=== PATIENT | female | born 1940 | race Caucasian/White ===

== ENCOUNTER 2023-01-30 10:06 | Outpatient (OUT) | payer MEDICARE, SELFPAY ==
--- NOTE | 2023-01-30 10:20 | MM_ITS ---
Patient: RAMEZ BRYANT Exam Date: 01/30/2023 : 1940 Gender:F Ordering : DR MELISSA MEIER M.D. Admission #: [id number] Family : SHEILA LOBO Order #: [id number] CLICK HERE TO VIEW EXAM RADIOLOGY REPORT PROCEDURE: MM TOMOSYNTHESIS DIAGNOSTIC BI COMPARISON: MG MAMM DIAGNOSTIC 3D REYNALDO CAD, 01/29/2022. MG MAMM DIAGNOSTIC 3D REYNALDO CAD, 02/03/2021. INDICATIONS: Z12.31 Calculator Name NCI Breast Cancer Risk Assessment Tool 5 Year Breast Cancer Risk n/a% Lifetime Breast Cancer Risk n/a% Personal Breast Cancer Yes, rt breast,2014 Personal Ovarian Cancer No Treatments Kbnswpmrknzv-motdcdpct-cygodeffpsjl, radiation Family Cancers Mother with kidney cancer at age ~50; Grandmother-maternal with unknown cancer at age ~90; Brother with prostate cancer at age 50; Son with melanoma cancer at age 52. LOCATION: [facility] BREAST COMPOSITION: Scattered areas fibroglandular density. FINDINGS: DIAGNOSTIC CATEGORY 2--BENIGN FINDING. NO CHANGE FROM COMPARISON. Scattered benign-appearing nodules are present. Scattered benign-appearing calcifications are present. RIGHT BREAST: No significant suspicious finding. Asymmetrically small. Architectural distortion lower inner quadrant deep to a linear scar marker likely postsurgical in nature and stable LEFT BREAST: No significant suspicious finding. RECOMMENDATIONS: ROUTINE MAMMOGRAM AND CLINICAL EVALUATION IN 12 MONTHS. PLEASE NOTE: A NORMAL MAMMOGRAM DOES NOT EXCLUDE THE POSSIBILITY OF BREAST CANCER. A CLINICALLY SUSPICIOUS PALPABLE LUMP SHOULD BE BIOPSIED. Dictated by: Christian Aguero MD on 01/30/2023 at 11:52 Approved by: Christian Aguero MD on 01/30/2023 at 11:53
== END 2023-01-30 10:07 | disposition home or self-care (01) ==
LOC: MAMMO 10:06
PROVIDERS: PCP Internal Medicine; Visit Provider Radiology Radiation Oncology
DX: Z85.3 Personal history of malignant neoplasm of breast (principal)
CPT/HCPCS: 77066; G0279

== ENCOUNTER 2024-02-03 09:44 | Outpatient (OUT) | payer MEDICARE, SELFPAY ==
--- NOTE | 2024-02-03 09:55 | MM_ITS ---
Patient Name: RAMEZ BRYANT MR#: [id number] : 1940 Exam Date: 02/03/2024 Ordering Doctor: DR MELISSA MEIER M.D. RADIOLOGY REPORT PROCEDURE: MM TOMOSYNTHESIS DIAGNOSTIC BI COMPARISON: MG MAMM DIAGNOSTIC 3D REYNALDO CAD, 01/29/2022. MM TOMOSYNTHESIS DIAGNOSTIC BI, 01/30/2023. INDICATIONS: Malignant Neoplasm Of Breast In Female Calculator Name NCI Breast Cancer Risk Assessment Tool 5 Year Breast Cancer Risk n/a% Lifetime Breast Cancer Risk n/a% Personal Breast Cancer Yes, rt breast,2013 Personal Ovarian Cancer No Treatments Dmbtxbzxtaxa-ubhajhmtu-zrokkndbcofh, radiation Family Cancers Mother with kidney cancer at age ~50; Grandmother-maternal with unknown cancer at age ~90; Brother with prostate cancer at age 50; Son with melanoma cancer at age 52. LOCATION: [facility] BREAST COMPOSITION: There are scattered areas of fibroglandular density. FINDINGS: DIAGNOSTIC CATEGORY 2--BENIGN FINDING. NO CHANGE FROM COMPARISON. Bilateral moderate linear geographically distributed calcifications, benign appearing. Vascular calcifications. No new areas of clustered suspicious calcification, architectural distortion or mass lesion RIGHT BREAST: No significant suspicious finding. Linear marker indicates a scar with some coarse subjacent calcifications likely dystrophic. LEFT BREAST: No significant suspicious finding. RECOMMENDATIONS: ROUTINE MAMMOGRAM AND CLINICAL EVALUATION IN 12 MONTHS. PLEASE NOTE: A NORMAL MAMMOGRAM DOES NOT EXCLUDE THE POSSIBILITY OF BREAST CANCER. A CLINICALLY SUSPICIOUS PALPABLE LUMP SHOULD BE BIOPSIED. Dictated by: Christian Aguero MD on 02/03/2024 at 10:39 Approved by: Christian Aguero MD on 02/03/2024 at 10:42
== END 2024-02-03 09:45 | disposition home or self-care (01) ==
LOC: MAMMO 09:44
PROVIDERS: PCP Internal Medicine; Visit Provider Radiology Radiation Oncology
DX: C50.919 Malignant neoplasm of unspecified site of unspecified female breast (principal); Z17.0 Estrogen receptor positive status [ER+]; Z80.51 Family history of malignant neoplasm of kidney; Z80.42 Family history of malignant neoplasm of prostate; Z80.8 Family history of malignant neoplasm of other organs or systems; Z85.3 Personal history of malignant neoplasm of breast
CPT/HCPCS: 77066; G0279

== ENCOUNTER 2024-02-04 11:41 | Outpatient (OUT) | payer MEDICARE, SELFPAY ==
--- NOTE | 2024-02-04 11:48 | MR_ITS ---
[facility] [place] [id number] Patient Name: RAMEZ BRYANT MRN: [id number] date: 1940 Sex: F Assigned Patient Location: LAB Current Patient Location: LAB Accession/Order Number: [id number] Exam Date: 02/04/2024 12:08 Report Date: 02/04/2024 15:00 At the request of: MELISSA MEIER Procedure: MR head/brain wo/w con EXAM: MR scan of brain with and without contrast. TECHNIQUE: Sagittal T1, axial FLAIR, JOHN T2, diffusion imaging without contrast and postcontrast sagittal, axial, and coronal T1-weighted images performed. CONTRAST: 15 mL Dotarem. COMPARISON: MR scan performed 04/04/2022. FINDINGS: Right posterior fossa extra-axial dural based enhancing mass abutting the transverse sinus measuring 16 x 16 x 11 mm in diameter. This is stable in appearance when compared to the prior study. Mild increased T2 signal in the white matter of both cerebral hemispheres without restricted diffusion. The ventricles, sulci and basilar cisterns are normal. The cerebral hemispheres, brainstem and cerebellar hemispheres are otherwise normal Good flow void is seen within the vertebrobasilar and carotid circulation as well as the sagittal sinus. The orbital apices and infratemporal fossa are normal. 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 Electronically authenticated by: Yassine GALAN Date: 02/04/2024 15:00
[2024-02-04 12:12] LABS: Estimated GFR (African America 58 (>=60 mL/min/1.73m^2); Estimated GFR (Non-African Ame 48 (>=60 mL/min/1.73m^2)
== END 2024-02-04 11:42 | disposition home or self-care (01) ==
LOC: LAB 11:41
PROVIDERS: PCP Internal Medicine; Visit Provider Radiology Radiation Oncology
DX: D32.0 Benign neoplasm of cerebral meninges (principal); D32.9 Benign neoplasm of meninges, unspecified
CPT/HCPCS: 36415; 70553; 82565; A9575

== ENCOUNTER 2025-01-12 11:23 | Outpatient (OUT) | payer MEDICARE, SELFPAY ==
--- OUTSIDE RECORDS SUMMARY | 2025-01-12 11:25 | XMS_ITS | Clinical Summary ---
Author Organization [facility] Address [id number] [address] [place] [address] Care Team Providers Care Industrial Gas Fitter Helper Name Role Phone Magdy Mazariegos Romario Fuentes Primary Care Provider Allergies Active Allergy Reactions Criticality Noted Date Comments Sulfamethoxazole-Trimethopr im Hives Low 05/01/2016 Oxaprozin Low 05/01/2016 Other reaction(s): SEVERE HEAD PAIN Other reaction(s): BAD PAIN IN HEAD Medications albuterol (PROVENTIL HFA;VENTOLIN HFA) 90 mcg/actuation inhaler Albuterol Sulfate 108 (90 Base) MCG/ACT AERS INHALE 2 PUFFS FOUR TIMES DAILY DIRECTED. Refills: 0 Active Active ANASTROZOLE ORAL Take 1 mg by mouth daily. Active aspirin 81 mg Take 81 mg by mouth daily. Active rosuvastatin (CRESTOR) 10 mg tablet Crestor 10 MG Oral Tablet TAKE 1 TABLET DAILY. Refills: 0 Active Active omega-3 fatty acids-vitamin E (FISH OIL) 1,000 mg capsule Active POLYETHYLENE GLYCOL 3350 (MIRALAX ORAL) Activ e budesonide-form oterol (SYMBICORT) 160-4.5 mcg/actuation inhaler Symbicort 160-4.5 MCG/ACT Inhalation Aerosol INHALE 2 PUFFS TWICE DAILY. RINSE MOUTH AFTER USE. Refills: 0 Active Active VITAMIN E, DL,TOCOPHERYL ACET, (VITAMIN E, DL, ACETATE, ORAL) Active ranitidine (ZANTAC) 150 mg tablet Take 150 mg by mouth 2 (two) times a day. 4 Active levothyroxine sodium (TIROSINT) 50 mcg capsule Take 50 mcg by mouth daily. Active ERGOCALCIFEROL, VITAMIN D2, (VITAMIN D2 ORAL) Take by mouth. Activ e fluticasone (FLONASE) 50 mcg/actuation nasal spray 7 Active naproxen sodium (ALEVE) 220 mg capsule Take 220 mg by mouth 2 (two) times a day with meals. Active DULoxetine (CYMBALTA) 60 mg capsule Take 60 mg by mouth daily. Active famotidine (PEPCID) 20 mg tablet Take 20 mg by mouth 2 (two) times a day. Active buPROPion XL (WELLBUTRIN XL) 150 mg 24 hr tablet 0 Active montelukast (SINGULAIR) 10 mg tablet Take 10 mg by mouth nightly. Active mirabegron (MYRBETRIQ) 50 mg tablet extended release 24 hr Take 1 tablet (50 mg total) by mouth daily. 90 tablet 3 0 Active oxybutynin XL (DITROPAN XL) 15 mg 24 hr tablet TAKE 1 TABLET BY MOUTH DAILY 90 tablet 3 2 Active Active Problems Problem Noted Date Diagnosed Date History of breast cancer in female 02/03/2018 Lumbar spondylosis 02/27/2017 Lumbosacral spondylosis without myelopathy 02/27 Overview (02/27/2017): Added automatically from request for surgery [id number] Cervical spondylosis without myelopathy 12/04/19 17 Malignant neoplasm of uterus 08/08/2016 Malignant neoplasm of female breast 08/08/2016 Urge incontinence of urine 05/01/2016 Overview (12/01/2019): Sling 2013 Redo sling with autologous fascia 2013 Rectocele repair 2014 Worsening urge incontinence despite myrbetriq use. Re-culture urine negative Urodynamics demonstrating normal bladder filling and emptying with no uninhibited contractures cysto May 15, 2016 negative Improved markedly with adding VESIcare 10 mg in conjunction with Myrbetriq 50 mg. 11/11/18: Some progression of symptoms. Plan to continue Myrbetriq 50 mg. Plan to increase to oxybutynin extended-release 15 mg 05/05/19: Progressive symptoms. Almost all at night. PVR 0. I told her that I think a lot of her symptoms are from poor sleep quality . She tried melatonin already. Plan tiral of ambien. 12/01/19: Continued urge incontinnence especially at night despite oxybutynin 15 mg and myrbetriq 50 mg. optoins discussed including intravesical botox. Discussed risk of retention. She was not interested. Urine with nitrate only. Will send for culture Family History Medical History Relation Name Comments Early Father Lazaro Newell Heart Attach age 27 Heart attack Father Lazaro Newell Cancer Maternal Grandfather Uterine cancer Maternal Grandmother Nikolas Escobarter Cancer Mother Heike Krause kidney and panc reatic Early Mother Heike Krause Cancer age 56 Kidney cancer Mother Heike Krause Uterine cancer Mother Heike Krause Kidney cancer Cancer Son 1 Nathaniel Herman Stroke Son 1 Nathaniel Herman Early Son 2 Guilherme Herman Cancer age 52 Relation Name Status Comments Father Lazaro Newell Maternal Grandfather Maternal Grandmother Nikolas Self Mother Heike Krause Son 1 Nathaniel Herman Son 2 Guilherme Herman Social History Tobacco Use Types Packs/Day Years Used Date Smoking Tobacco: Never Smokeless Tobacco: Never Alcohol Use Standard Drinks/Week Comments No 0 (1 standard drink = 0.6 oz pur e alcohol) Childcare Answer Date Recorded Childcare Unknown 10/08/2018 Employment Answer Date Recorded Employment Unknown 10/08/2018 Purpose - Life Answer Date Recorded Purpose and direction in life Unknown Comments No Sex and Gender Information Value Date Recorded Sex Assigned at Female 07/22/2021 10:06 AM EDT Legal Sex Female 11:27 AM EDT Gender Identity Female 07/22/2021 10:06 AM EDT Sexual Orientation Straight 07/22/2021 10 :06 AM EDT Last Filed Vital Signs Vital Sign Reading Time Taken Comments Blood Pressure 160/80 02/15/2020 10:28 AM EDT Pulse 93 12/05/2019 12:59 PM EDT Temperature 36.6 C (97.9 F) 12/05/2019 12:59 PM EDT Respiratory Rate 18 12/05/2019 12:59 PM EDT Oxygen Saturation 96% 12/05/2019 12:59 PM EDT Inhaled Oxygen Concentration - - Weight 86.3 kg (190 lb 3.2 oz) 02/15/2020 10:25 AM EDT Height 157.5 cm (5' 2 ) 02/15/2020 10:25 AM EDT Body Mass Index 34.79 02/15/2020 10:25 AM EDT Plan of Treatment Health Maintenance Due Date Last Done Comments Depression Screening 1952 Tobacco Screening 1952 DTaP,Tdap and Td Vaccines (1 - Tdap) 1958 Zoster (Shingles) Vaccine (1 of 2) 1958 Fall Risk Screening 01/26/2004 COVID-19 Vaccine (3 - Pfizer risk series) 07/07/2020 06/09/2020, 05/19/2020 Influenza Vaccine 12/28/2024 01/20/2020, , 12/28/2010 Medical Devices Implanted Type Area Recreation Coordinator Device Identifier Shelf Expiration Date Model / Serial / Lot Artificial Knees Description:bilateral Breast Marker Description:Right breast Insurance MEDICARE [facility] Care Teams Industrial Gas Fitter Helper Relationship Specialty Start Date End Date Romario Curran Jr., [address] [id number] PCP - General Internal Medicine 01/11/16
--- OUTSIDE RECORDS SUMMARY | 2025-01-12 11:25 | XMS_ITS | Encounter Summary ---
Author Organization [facility] Address [facility] [id number] [address] [place] [address] Care Team Providers Care Railcar Carpenter Name Role Phone Magdy Mazariegos DO, Charles L Primary Care Provider Encounter Details Date Type Department Care Team (Late st Contact Info) Description 12/22[facility]2019 [facility] [address] [place] [id number] Mayra Guillaume RMA Social History Tobacco Use Types Packs/Day Years Used Date Smoking Tobacco: Never Smokeless Tobacco: Never Alcohol Use Standard Drinks/Week Comments No 0 (1 standard drink = 0.6 oz pur e alcohol) Childcare Answer Date Recorded Childcare Unknown 10/08/2018 Employment Answer Date Recorded Employment Unknown 10/08/2018 Comments No Sex and Gender Information Value Date Recorded Sex Assigned at Female 07/22/2021 10:06 AM EDT Legal Sex Female 11:27 AM EDT Gender Identity Female 07/22/2021 10:06 AM EDT Sexual Orientation Straight 07/22/2021 10 :06 AM EDT COVID-19 Exposure Response Date Recorded In the last month, have you been in contact with someone who was confirmed or suspected to have Coronavirus / COVID-19? No / Unsure 12/05/2019 1:01 PM EDT documented as of this encounter Miscellaneous Notes * Telephone Encounter - MINERVA Chatterjee - 12/22/2019 12:53 PM EDT Can you please advise on the urine culture done on 12/16/2019. MINERVA Chatterjee 12/22/19 1255 * Telephone Encounter - NANNETTE Recinos - 12/22/2019 12:53 PM EDT Normally that organism does not cause problem unless pt is --pt is 79 yrs old so I would not treat unless truly feels she is symptomatic * Telephone Encounter - MINERVA Chatterjee - 12/22/2019 12:53 PM EDT Pt wanted me to leave a vm, so I did with the results. documented in this encounter Plan of Treatment Not on file documented as of this encounter Visit Diagnoses Not on filedocumented in this encounter Additional Health Concerns Assessment Noted Time A Body Mass Index follow-up plan has been documented for the patient 02/03/2018 11:08 AM EDT documented as of this encounter Care Teams Railcar Carpenter Relationship Specialty Start Date End Date Romario Curran Jr., [facility] [place] [address] PCP - General Internal Medicine 01/11/16 documented as of this encounter
--- OUTSIDE RECORDS SUMMARY | 2025-01-12 11:25 | XMS_ITS | Encounter Summary ---
Author Organization [facility] Address [facility] [id number] [address] [place] [address] Care Team Providers Care Inspector Name Role Phone Magdy Mazariegos DO, Charles L Primary Care Provider Encounter Details Date Type Department Care Team (Late st Contact Info) Description 12/18[facility]2019 [facility] [address] [place] [address] Adriana Garcia CMA Social History Tobacco Use Types Packs/Day Years [...] encounter Miscellaneous Notes * Telephone Encounter - Adriana Garcia CMA - 12/18/2019 8:04 AM EDT Pt's urine culture came back Strep B, no treatment correct? Adriana Garcia CMA 12/18/19 0804 * Telephone Encounter - Kurt Spivey MD - 12/18/2019 8:04 AM EDT Correct documented in this encounter Plan of Treatment Not on file documented as of this encounter Visit Diagnoses Not on filedocumented in this encounter Additional Health Concerns Assessment Noted Time A Body Mass Index follow-up plan has been documented for the patient 02/03/2018 11:08 AM EDT documented as of this encounter Care Teams Inspector Relationship Specialty Start Date End Date Romario Curran Jr., [address] [place] [address] PCP - General Internal Medicine 01/11/16 documented as of this encounter
--- OUTSIDE RECORDS SUMMARY | 2025-01-12 11:25 | XMS_ITS | Clinical Summary ---
Author Organization [facility] Address [address] [facility] [address], [address] [place] [address] Care Team Providers Care Manager Intel Name Role Phone Vance Bergeron MD Primary Care Provider [phone] Allergies No known active allergies Medications valsartan (DIOVAN) 160 MG tablet Take 160 mg by mouth daily. Active Rosuvastatin Calcium (CRESTOR PO) Take by mouth daily. Active sertraline (ZOLOFT) 100 MG tablet Take 100 mg by mouth daily. Active Albuterol Sulfate (PROVENTIL HFA IN) Inhale into the lungs as needed. Active amlodipine (NORVASC) 5 MG tablet Take 5 mg by mouth daily. Active nabumetone (RELAFEN) 500 MG tablet Take 1,000 mg by mouth nightly. Active ranitidine (ZANTAC) 150 MG tabletIndication s:Bronchial asthma Take 1 tablet by mouth 2 times daily. 180 tablet 3 01/31/2012 Active Active Problems Problem Noted Date Diagnosed Date Bronchial asthma 07/16/2011 Post-nasal drip 07/16/2011 Periodic limb movement sleep disorder 07/16/2011 Sleep apnea 07/16/2011 Immunizations Immunization Administration Dates Next Due Influenza Virus Vaccine 12/28/2010 Social History Tobacco Use Types Packs/Day Years Used Date Smoking Tobacco: Never Alcohol Use Standard Drinks/Week Comments No 0 (1 standard drink = 0.6 oz pur e alcohol) Comments No Sex and Gender Information Value Date Recorded Sex Assigned at Not on file Legal Sex Female 10:50 AM EST Gender Identity Not on file Sexual Orientation Not on file Last Filed Vital Signs Vital Sign Reading Time Taken Comments Blood Pressure 136/74 01/28/2012 9:23 AM EDT Pulse 75 01/28/2012 9:23 AM EDT Temperature 36.3 C (97.4 F) 01/28/2012 9:23 AM EDT Respiratory Rate 16 01/28/2012 9:23 AM EDT Oxygen Saturation 95% 01/28/2012 9:23 AM EDT Inhaled Oxygen Concentration - - Weight 104.3 kg (230 lb) 01/28/2012 9:23 AM EDT Height 160 cm (5' 3 ) 01/28/2012 9:23 AM EDT Body Mass Index 40.74 01/28/2012 9:23 AM EDT Plan of Treatment Not on file Care Teams Manager Intel Relationship Specialty Start Date End Date Vance Bergeron MD PCP - General 07/16/11
--- OUTSIDE RECORDS SUMMARY | 2025-01-12 11:25 | XMS_ITS | Clinical Summary ---
Author Organization [facility] Address [address] [place] [address] Care Team Providers Care Home Energy Auditor Name Role Phone Magdy Mazariegos DO, Charles [facility] Primary [facility] Provi patricia Allergies Active Allergy Reactions Criticality Noted Date Comments Sulfamethoxazole-Trime thoprim Rash,Hives Low 05/01/2016 red spots Oxaprozin Other: See Comments Low 09/05/2009 Other reaction(s): SEVERE HEAD PAIN Other reaction(s): BAD PAIN IN HEAD Medications mirabegron (MYRBETRIQ) 25 mg Tb24 Take 25 mg by mouth once daily. Active oxybutynin ER (DITROPAN XL) 15 mg 24 hr Extended Rel Tab 15 mg. 06/12/2016 Active levothyroxine 50 mcg cap Take 50 mcg by mouth daily before breakfast. Active famotidine (PEPCID) 20 mg tablet Take 20 mg by mouth twice daily. Active buPROPion SR (ZYBAN SR; WELLBUTRIN SR) 150 mg 12 hr tablet Take by mouth. 02/16/2022 Active losartan (COZAAR) 25 mg tablet 10/23/2022 Active montelukast (SINGULAIR) 10 mg tablet Take 10 mg by mouth daily at bedtime. 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 Immunizations Immunization Administration Dates Next Due influenza (HD-IIV4) vaccine, age 65+ yr, high dose, quadrivalent, PF (FLUZONE HIGH-DOSE) 01/20/2020 influenza (LAIV) vaccine, na geo, unspecified formulation 12/28/2010 influenza vaccine, unspecified formulation 01/27 pneumococcal polysaccharide (PPV23) vaccine, 23 valent (PNEUMOVAX 23) 01/20/2020 Social History Tobacco Use Types Packs/Day Years Used Date Smoking Tobacco: Never Smokeless Tobacco: Never Tobacco Cessation:Counseling Given: Not Answered Alcohol Use Standard Drinks/Week Comments Not Asked 0 (1 standard drink = 0.6 oz pur e alcohol) PHQ-2 Answer Date Recorded PHQ-2 score 0 02/12/2024 Area Deprivation Index Answer Date Marcos rded National Score (1-100), lower number is lower ri sk 65 02/06/2023 State Score (1-10), lower number is lower risk 5 02/06/2023 Data from: https://www.neighborhoodatlas.medicine.[facility]/. Last address used for calculation [address] 02/06/2023 Comments No Sex and Gender Information Value Date Recorded Sex Assigned at Female 12/18/2018 7:58 PM EDT Legal Sex Female 8:21 AM EST Gender Identity Female 12/18/2018 7:58 PM EDT Sexual Orientation Straight 12/18/2018 7: 58 PM EDT Last Filed Vital Signs Vital Sign Reading Time Taken Comments Blood Pressure 153/84 02/12/2024 8:47 AM EDT Pulse 104 02/12/2024 8:47 AM EDT Temperature 36.7 C (98.1 F) 02/12/2024 8:47 AM EDT Respiratory Rate 18 02/12/2024 8:47 AM EDT Oxygen Saturation 98% 02/12/2024 8:47 AM EDT Inhaled Oxygen Concentration - - Weight 75 kg (165 lb 5.5 oz) 02/12/2024 8:47 AM EDT Height 157.5 cm (5' 2.01 ) 07/30/2018 1:45 PM ED T Body Mass Index 30.23 07/30/2018 1:45 PM EDT Plan of Treatment Upcoming Encounters Date Type Department Care Team (Late st Contact Info) Description 02/11/2025 10:00 AM EDT Office Visit Radiation Oncology [address] [place] [address] [place] [address] Yassine Broderick MD [address] [place] [address] [place] [address] 1 yr follow up Health Maintenance Due Date Last Done Comments Anxiety Screening 1958 Depression Screening 1958 Bone Density Screening 01/26/2004 RSV Vaccine (1 - 1-dose 75+ series) 2014 Diabetes Screening 07/30/2021 07/30/2018, 10/02/2017 Shingrix Vaccine (2 of 2) 03/12/2024 01/16/2024 Advance Directive Discussion 04/29/2024 Medicare Advantage Annual We llness Visit 04/29/2024 Influenza Vaccine (#1) 2024 , 01/28/2020, 01/20/2020, Additional history exists DTaP,Tdap,Td Vaccine (2 - Td or Tdap) 01/15/2034 01/16/2024 Pneumococcal Vaccine: 50+ Completed 01/16/2024, Procedures Procedure Name Priority Date/Time Associated Diagnosis Comments BASIC METABOLIC PANEL Routine 07/30/2018 1:54 PM EDT Malignant neoplasm of breast in female, estrogen receptor positive, unspecified laterality, unspecified site of breast (HCC) from Last 3 Months or Most Recently Relevant to Health Maintenance Results * (ABNORMAL) BASIC METABOLIC PNL (07/30/2018 1:54 PM EDT) Glucose 102(H) 74 - 99 mg/dL 07/31/2018 6:54 AM EDT [facility] Comment: The [place] Diabetes [employer] (ADA) provides guidance for cutoff values for fasting glucose and random glucose. The ADA defines fasting as no caloric intake for at least 8 hours. Fasting plasma glucose results between 100 to 125 mg/dL indicate increased risk for diabetes (prediabetes). Fasting plasma glucose results greater than or equal to 126 mg/dL meet the criteria for diagnosis of diabetes. In the absence of unequivocal hyperglycemia, results should be confirmed by repeat testing. In a patient with classic symptoms of hyperglycemia or hyperglycemic crisis, random plasma glucose results greater than or equal to 200 mg/dL meet the criteria for diagnosis of diabetes. Reference: Standards of Medical Care in Diabetes 2016, [place] [employer]. Diabetes Care. 2016.39(Suppl 1). BUN 13 7 - 21 mg/dL 07/31/2018 6:54 AM EDT [facility] Creatinine 0.64 0.58 - 0.96 mg/dL 07/31/2018 6:54 AM EDT [facility] Sodium 142 136 - 144 mmol/L 07/31/2018 6:54 AM EDT [facility] Potassium 4.0 3.7 - 5.1 mmol/L 07/31/2018 6:54 AM EDT [facility] Chloride 107(H) 97 - 105 mmol/L 07/31/2018 6:54 AM EDT [facility] CO2 21(L) 22 - 30 mmol/L 07/31/2018 6:54 AM EDT [facility] Anion Gap 14 9 - 18 mmol/L 07/31/2018 6:54 AM EDT [facility] Calcium 9.5 8.5 - 10.2 mg/dL 07/31/2018 6:54 AM [facility] eGFR- >60 07/31/2018 6:54 AM T [facility] eGFR-All Other Races >60 . 07/31/2018 6:54 AM T [facility] Comment: eGFR (Estimated GFR) Units of measure: mL/min/1.73 meters squared eGFR is derived from the reexpressed MDRD Study equation using the following parameters: serum creatinine, age, gender and race. The creatinine assay has been calibrated to be traceable to IDMS. An eGFR <60 mL/min/1.73m2 for >3 months is consistent with chronic kidney disease. Refer to KDOQI guidelines for clinical interpretation. In patients with unstable renal function, e.g. those with acute kidney injury, the eGFR may not accurately reflect actual GFR. Blood specimen (specimen) 07/30/2018 1:54 PM EDT 07/30/2018 1:56 PM EDT us Kurt Cano DO LABORATORY Final Res ult [facility] [address] [place] [address] [facility] [address] [place] [address] from Last 3 Months or Most Recently Relevant to Health Maintenance Insurance [employer] (Work) [address] [place] [id number] [facility] [place] [address] Advance Directives Documents on File Type Date Recorded Patient Oracle Reports Developer Expl anation Advance Directive(s) 03/05/2014 2:12 PM Care Teams Home Energy Auditor Relationship Specialty Start Date End Date Romario Curran Jr., [address] [place] [address] [place] [id number] PCP - General Internal Medicine 02/02/14
--- NOTE | 2025-01-12 11:26 | MM_ITS ---
Patient Name: RAMEZ BRYANT MR#: [id number] : 1940 Exam Date: 01/12/2025 Ordering Doctor: DR MELISSA MEIER M.D. RADIOLOGY REPORT PROCEDURE: MM TOMOSYNTHESIS SCREENING BI COMPARISON: MM TOMOSYNTHESIS DIAGNOSTIC BI, 02/03/2024. MM TOMOSYNTHESIS DIAGNOSTIC BI, 01/30/2023. MG MAMM DIAGNOSTIC 3D REYNALDO CAD, 01/29/2022. MG MAMM RT DIAG W CAD, 08/13/2014. INDICATIONS: screening Calculator Name NCI Breast Cancer Risk Assessment Tool 5 Year Breast Cancer Risk n/a% Lifetime Breast Cancer Risk n/a% Personal Breast Cancer Yes, rt breast,2013 Personal Ovarian Cancer No Treatments Upljmqkvwghs-vjehpdbwb-papiyskpqebd, radiation Family Cancers Mother with kidney cancer at age ~50; Grandmother-maternal with unknown cancer at age ~90; Brother with prostate cancer at age 50; Son with melanoma cancer at age 52. LOCATION: [facility] BREAST COMPOSITION: There are scattered areas of fibroglandular density. FINDINGS: RIGHT BREAST: No significant suspicious finding. LEFT BREAST: No significant suspicious finding. DIAGNOSTIC CATEGORY 1--NEGATIVE. RECOMMENDATIONS: ROUTINE MAMMOGRAM AND CLINICAL EVALUATION IN 12 MONTHS. Dictated by: Jesse Hackett MD on 01/12/2025 at 14:52 Approved by: Jesse Hackett MD on 01/12/2025 at 15:15
--- OUTSIDE RECORDS SUMMARY | 2025-01-12 12:17 | XMS_ITS | CCD ---
Author Organization [facility] Care Team Providers Care Supervisor [place] Name Role Phone Romario Lobo Jr. Primary Care Provider ROMARIO LOBO JR Primary Care Physician Romario Lobo Jr. Primary Care Provider ROMARIO TA Referring Unavail able NILL, Inge Escobedo Attending Unavailable NILL, Inge Escobedo Attending Unavailable NILL, DR ALCAZAR Consulting Unavailable NILL, DR ALCAZAR Admitting Unavailable NILL, DR ALCAZAR Attending Unavailable VALONE, DR SOSA Primary Care Unavailable RICARDO, MICHAEL GREGORY Consulting Unava ilable GEMBUS, ANGELIA Consulting Unavailable ENGELER, DR MELISSA Mahajan Attending Unavailable VALONE, DR SOSA Primary Care Unavailable WEST, DR VIVIANA Arroyo Consulting Unavailable ENGELER, DR MELISSA Mahajan Admitting Unavailable ENGELER, DR MELISSA Mahajan Consulting Unavailable VALONE, DR SOSA Primary Care Unavailable ENGELER, DR MELISSA Mahajan Attending Unavailable ENGELER, DR MELISSA Mahajan Consulting Unavailable ENGELER, DR MELISSA Mahajan Admitting Unavailable ZIEBER, DR MERYL Escobedo Consulting Unavailable NILL, DR ALCAZAR Consulting Unavailable NILL, DR ALCAZAR Admitting Unavailable NILL, DR ALCAZAR Attending Unavailable VALONE, DR SOSA Primary Care Unavailable Magdy Mazariegos, , Romario Newton Primary Care Provi patricia Yassine ANSARI Referring Unavailable Yassine ANSARI Attending Unavailable ROMARIO LOBO JR Primary Care Unavail able Allergies Allergy Classification Reported Allergen(s) Allergy Type Date of Onset Reaction(s) Facility (10 sources) oxaprozin; Translations: [oxaprozin] Drug Allergy 0 Other: See Comments, Unknown (qualifier value) [facility] (10 sources) Sulfamethoxazole / Trimethoprim; Translations: [sulfamethoxazole-tr imethoprim] Drug Allergy 7 Rash, Hives, Urticaria (disorder), Eruption of skin (disorder) [facility] (1 source) oxaprozin Drug Allergy [facility] (1 source) Sulfamethoxazole / Trimethoprim Drug Allergy [facility] Medications Current Medications Medication Drug Class(es) Dates Sig (Normalized) Sig (Original) 12 hr buPROPion hydrochloride 150 mg extended release oral tablet (4 sources) Aminoketone Start: 02-16-2022 take 1 tablet by mouth every twelve hours buPROPion SR (ZYBAN SR; WELLBUTRIN SR) 150 mg 12 hr tablet Take by mouth. 02/16/2022 Active Start: 02-16-2022 take 1 tablet by grace th once daily buPROPion 150 mg ER Tab 150 mg = 1 tab(s), Oral, Daily, Refills(s) 0 Start Date: 02/16/22 Status: Ordered Comment on above: Take by mouth. famotidine 20 mg oral tablet (7 sources) Histamine-2 Receptor Antagonist Start: 02-17-20 take 1 tablet by mouth twice daily famotidine 20 mg Tab 20 mg = 1 tab(s), Oral, BID, Refills(s) 0 Start Date: 02/16/22 Status: Ordered Comment on above: Take 20 mg by mouth twice daily. iv contrast (will be provided with radiology test) (2 sources) Start: 02-07-20 End: 02-08-20 inject 1 dose intravenously once iv contrast (will be provided with radiology test) MRI Brain Inject, intravenously, once for 1 dose.No IV access, insert saline lock prior to beginning of sedation, infusion, injection of imaging exam.Discontinue saline lock post exam. If Pt. has a central line or IVAD, may access for administration according to line specific nursing protocol.Once exam is complete flush line and de-access according to line specific nursing protocol in the MR contrast administration guidelines link 1 Each 0 02/06/2023 02/07/2023 Active Start: 02-07-2022 End: 02-08-2022 inject 1 dose intravenously once iv contrast (will be provided with radiology test) MRI Brain Inject, intravenously, once for 1 dose.No IV access, insert saline lock prior to beginning of sedation, infusion, injection of imaging exam.Discontinue saline lock post exam. If Pt. has a central line or IVAD, may access for administration according to line specific nursing protocol.Once exam is complete flush line and de-access according to line specific nursing protocol in the MR contrast administration guidelines link 1 Each 0 02/07/2022 02/08/2022 Active Comment on above: MRI Brain Inject, in travenously, once for 1 dose.No IV access, insert saline lock prior to beginning of sedation, infusion, injection of imaging exam.Discontinue saline lock post exam. If Pt. has a central line or IVAD, may access for administration according to line specific nursing protocol.Once exam is complete flush line and de-access according to line specific nursing protocol in the MR contrast administration guidelines link levothyroxine sodium 0.05 mg oral tablet (8 sources) l-Thyroxine Start: 022 take 1 tablet by mouth once daily levothyroxine 50 mcg (0.05 mg) Tab 50 mcg = 1 tab(s), Oral, Daily, Refills(s) 0 Start Date: 02/16/22 Status: Ordered take 1 capsule by [facility] once daily before breakfast levothyroxine 50 mcg cap Take 50 mcg by mouth daily before breakfast. Active Comment on above: Take 50 mcg by mouth daily before breakfast. losartan potassium 25 mg oral tablet (3 sources) Angiotensin 2 Receptor Mickey Start: 3 losartan (COZAAR) 25 mg tablet 10/23/2022 Active metFORMIN hydrochloride 500 mg oral tablet (2 sources) Biguanide Start: 1 End: 2 take 1 tablet by mouth once daily metFORMIN (GLUCOPHAGE) 500 mg tablet Take 500 mg by mouth once daily. 0 12/23/2020 02/07/2022 Discontinued (Course of therapy completed) Comment on above: Take 500 mg by mouth once daily. 24 hr mirabegron 50 mg extended release oral tablet (8 sources) beta3-Adrenergic Agonist Start: 2 take 1 tablet by mouth once daily Myrbetriq 50 mg oral tablet, extended release 50 mg = 1 tab(s), Oral, Daily, Refills(s) 0 Start Date: 02/16/22 Status: Ordered take 25 mg by mouth once daily m irabegron (MYRBETRIQ) 25 mg Tb24 Take 25 mg by mouth once daily. Active Comment on above: Take 25 mg by mouth once daily. montelukast 10 mg oral tablet (3 sources) Leukotriene Receptor Antagonist take 1 tablet by mouth once daily at bedtime montelukast (SINGULAIR) 10 mg tablet Take 10 mg by mouth daily at bedtime. Active Comment on above: Take 10 mg by mouth daily at bedtime. 24 hr oxybutynin chloride 15 mg extended release oral tablet (8 sources) Cholinergic Muscarinic Antagonist Start: 2 take 1 tablet by mouth once daily oxybutynin 15 mg ER Tab 15 mg = 1 tab(s), Oral, Daily, Refills(s) 0 Start Date: 02/16/22 Status: Ordered Start: 06-12-2016 oxybutynin ER (DITROPAN XL) 15 mg 24 hr Extended Rel Tab 15 mg. 06/12/2016 Active Comment on above: 15 mg. Miralax (1 source) Osmotic Laxative Start: 2 take 17 g by mouth once daily MiraLax 17 gm, Oral, Daily, Refill(s) 0 Start Date: 02/16/22 Status: Ordered triamcinolone acetonide 5 mg/ml topical cream (1 source) Corticosteroid Start: 2 triamcinolone Top 0.5% Crm 1 martine, Topical, BID, Refill(s) 0 Start Date: 02/16/22 Status: Ordered Problems Active Problems Problem Classification Problem Date Documented Da te Episodic/Chronic Asthma (1 source) Asthma 02-16-2022 Chronic Cancer of breast (19 sources) Malignant neoplasm of female breast; Translations: [Malignant neoplasm of unspecified site of unspecified female breast] Onset: 4 08-29-2017 Chronic Cancer of breast (12 sources) History of malignant neoplasm of breast; Translations: [Personal history of malignant neoplasm of breast] Onset: 5 08-30-2014 Episodic Cancer of uterus (1 source) History of malignant neoplasm of uterine body 02-16-2022 Episodic Chronic obstructive pulmonary disease and bronchiectasis (2 sources) Chronic obstructive lung disease; Translations: [Chronic obstructive pulmonary disease, unspecified] Onset: 2 02-16-2022 Chronic Disorders of lipid metabolism (2 sources) Hyperlipidemia; Translations: [Hyperlipidemia, unspecified] Onset: 2 02-16-2022 Chronic Diverticulosis and diverticulitis (2 sources) Diverticular disease; Translations: [Diverticulosis of large intestine without perforation or abscess without bleeding] Onset: 2 02-16-2022 Chronic Esophageal disorders (2 sources) Gastroesophageal reflux disease; Translations: [Gastro-esophageal reflux disease without esophagitis] Onset: 2 02-16-2022 Chronic Essential hypertension (2 sources) Hypertensive disorder; Translations: [Essential (primary) hypertension] Onset: 2 02-16-2022 Chronic Mood disorders (1 source) Depressive disorder 02-16-2022 Chronic Other aftercare (1 source) Other press tender long goods (current) drug therapy; Translations: [OTH PUPPY SITTER CURRENT DRUG THERAPY] Onset: 2 Episodic Other and unspecified benign neoplasm (8 sources) Benign neoplasm of cerebral meninges; Translations: [Benign neoplasm of cerebral meninges] Onset: 0 06-30-2009 Chronic Other and unspecified benign neoplasm (3 sources) Benign neoplasm of meninges; Translations: [Benign neoplasm of meninges, unspecified] Chronic Other and unspecified benign neoplasm (1 source) Benign neoplasm of meninges, unspecified; Translations: [BENIGN NEOPLASM OF MENINGES UNS] Onset: 2 Chronic Other gastrointestinal disorders (1 source) Abnormal feces; Translations: [Other fecal abnormalities] Onset: 2 Episodic Other gastrointestinal disorders (1 source) Chronic constipation 02-16-2022 Episodic Other gastrointestinal disorders (4 sources) Other fecal abnormalities; Translations: [OTHER FECAL ABNORMALITIES] Onset: 2 Episodic Other nutritional; endocrine; and metabolic disorders (1 source) Body mass index 30+ - obesity 02-28-2022 Chronic Other screening for suspected conditions (not mental disorders or infectious disease) (1 source) Stool DNA-based colorectal cancer screening positive 02-16-2022 Episodic Phlebitis; thrombophlebitis and thromboembolism (1 source) H/O: Deep vein thrombosis 02-16-2022 Episodic Residual codes; unclassified (1 source) Estrogen receptor positive status [ER+]; Translations: [ESTROGEN RECEPTOR POSITIVE STATUS] Onset: 2 Episodic Thyroid disorders (1 source) Hypothyroidism, unspecified; Translations: [HYPOTHYROIDISM UNSPECIFIED] Onset: 2 Chronic Unclassified (1 source) CONTACT W/AND (SUSP) EXPOS COVID-19; Translations: [CONTACT W/AND (SUSP) EXPOS COVID-19] Onset: 2 Past or Other Problems Problem Classification Problem Date Documented Da te Episodic/Chronic Other bone disease and musculoskeletal deformities (8 sources) Osteopenia; Translations: [Other specified disorders of bone density and structure, unspecified site] Onset: 03-29-2016 03-29-2016 Episodic Results Test Name Value Interpretation Reference Range Facil ity CNOVon 02-12-2024 CNOV Office Visit (RADTSA) RAMEZ HERMAN ([id number]) 1940 F Date Time Provider Department 02/12/24 9:00 AM Yassine ANSARI During your visit today, we recorded the following information about you: Temperature Pulse Respiration Blood pressure 98.1 degrees 104/minute 18/minute 153/84 Weight 75 kg Yassine Ansari MD 02/12/2024 9:07 AM Signed Radiation Oncology - Follow Up Note PATIENT NAME: Ramez Herman PATIENT Treatment Technique: conformal Imaging: portal imaging Date Start: 03/29/2014 Date Complete: 05/11/2014 Treatment Area Number [employer] Number of Fractions (Elapsed Days) Dose Right Breast 5 6/18 MV 25(36) 5000cGy Right Breast Boost 1 16 MEV 5(6) 1000cGy Total 30(43) 6000cGy DIAGNOSIS: 1. Breast cancer, right, [id number] status post right breast radiation completed in 2014. 2. Right cerebellar convexity meningioma. 3. Endometrial cancer with prior hysterectomy and INTERVAL HISTORY: Ramez Herman presents for follow no new problems or concerns. She states she has been doing well. Denies any logic issues, denies headache or vision change. Denies changes on self breast exam. No upper extremity lymphedema. Denies cough chest pain or shortness of breath. She is staying active. . Mammography: 02/03/24: bilateral mammography. BIRADS2 No suspicious findings or changes. Interval 12 month mammogram recommended. MRI Brain 02/04/24: Stable, no progression. No other significant findings. ALLERGIES: ALLERGIES Allergen Reactions Bactrim [Sulfametho* Rash, Hives red spots Daypro [Oxaprozin] Other: See Comments Other reaction(s): SEVERE HEAD PAIN Other reaction(s): BAD PAIN IN HEAD MEDICATIONS: buPROPion SR (ZYBAN SR; WELLBUTRIN SR) 150 mg 12 hr tablet Take by mouth. losartan (COZAAR) 25 mg tablet montelukast (SINGULAIR) 10 mg tablet Take 10 mg by mouth daily at bedtime. famotidine (PEPCID) 20 mg tablet Take 20 mg by mouth twice daily. levothyroxine 50 mcg cap Take 50 mcg by mouth daily before breakfast. oxybutynin ER (DITROPAN XL) 15 mg 24 hr Extended Rel Tab 15 mg. mirabegron (MYRBETRIQ) 25 mg Tb24 Take 25 mg by mouth once daily. PHYSICAL EXAM: VS: BP 153/84 Pulse 104 Temp 36.7 ?C (98.1 ?F) Resp 18 Wt 75 kg (165 lb 5.5 oz) SpO2 98% BMI 30.23 kg/m? KPS: 100 PHYSICAL EXAM: General Appearance: Well appearing, alert, in no acute distress, well-hydrated, well nourished.. Skin: Skin color, texture, turgor normal, no suspicious rashes or lesions. Lungs: Lungs clear to auscultation. No wheezing, rhonchi, rales.. Abdomen: Normal abdominal exam, Abdomen soft, non-tender. Bowel sounds normal. No masses, organomegaly. Neurologic: Nonfocal alert and oriented ?3 cranial nerves II through XII intact. Gait and station normal. So how long can you stated that her larynx today feel like there is a documentary I think that some of the morning but I did not know if he had stuff going on the abdomen -9 is perfect Breast: bilateral breasts are symmetric, minimal posttreatment changes on the right. No suspicious or dominant nodularity. The sensitive examination was discussed with the Patient or Patient's Authorized Grain Inspector. As applicable, any other physician, advance practice provider, medical student, or other health professional student that will be observing or involved in the sensitive examination for educational or training purposes was discussed with the Patient or Authorized Grain Inspector. The Patient or Authorized Grain Inspector has agreed to proceed with the sensitive examination. (Sensitive examination includes inspection and/or palpation of the breasts, pelvis, prostate and anorectal regions, renal dietitian present) ASSESSMENT/PLAN: 1. Breast cancer, right, [id number] Clinically doing well. No late radiation problems or evidence of recurrence. Plan return in one year with mammography 2. Right cerebellar convexity meningioma, MRI documents continued stability. Patient is due for every other year MRI brain. This will be due next fall will have this done prior to the visit. 3. Endometrial cancer. No evidence of clinical recurrence. Signed by: Yassine Ansari MD Cc:Dr. Lobo Portions of the above note extracted and edited from previous visit as well as active information included in the EMR. Referring Provider: Yassine ANSARI [[id number]] Allergies As of Date: 02/12/2024 Noted Allergy Reaction BACTRIM (SULFAMETHOXAZOLE-TR IMETH*05/01/2016 2 - Rash 4 - Hives Comments: red spots DAYPRO (OXAPROZIN) 09/05/2009 14 - Other: See Comments Comments: Other reaction(s): SEVERE HEAD PAIN Other reaction(s): BAD PAIN IN HEAD Date Reviewed: 02/12/2024 Reviewed by: Deysi Damon, RN - Fully Assessed Reason for Visit: Breast Cancer [519] Primary Visit Diagnosis:History of breast cancer [Z85.3] Order(s):KATHERINE DIAGNOSTIC BILATE (more content not included)... Normal [facility] [place] [facility] RAME[facility] HER[facility] ([id number]) 1940 F Date Time Provider Department 01/29/24 Yassine ANSARI During your visit today, we recorded the following information about you: Jessica Harris 01/29/2024 1:18 PM Signed Ramez is scheduled for her MRI on February 03 at 12:30pm At the [facility]. ANG/JOSE can we please fax over a creatine order for her per their request? Thank you Ron Montenegro LPN 01/29/2024 2:04 PM Signed Please sign pended creatinine order for upcoming MRI. Fax order to [facility]. VETO Elaine Ariana, LPN 01/29/2024 2:04 PM Signed Addended by: RON MONTENEGRO on: 01/29/2024 02:04 PM Modules accepted: Orders Yassine Ansari MD 01/29/2024 4:01 PM Signed Addended by: Yassine ANSARI on: 01/29/2024 04:01 PM Modules accepted: Orders Allergies As of Date: 01/29/2024 Noted Allergy Reaction BACTRIM (SULFAMETHOXAZOLE-TR IMETH*05/01/2016 2 - Rash 4 - Hives Comments: red spots DAYPRO (OXAPROZIN) 09/05/2009 14 - Other: See Comments Comments: Other reaction(s): SEVERE HEAD PAIN Other reaction(s): BAD PAIN IN HEAD Date Reviewed: 02/06/2023 Reviewed by: Ron Montenegro LPN - Fully Assessed Primary Visit Diagnosis: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 - losartan (COZAAR) 25 mg tablet - montelukast (SINGULAIR) 10 mg tablet Take 10 mg by mouth daily at bedtime. - famotidine (PEPCID) 20 mg tablet Take 20 mg by mouth twice daily. - levothyroxine 50 mcg cap Take 50 mcg by mouth daily before breakfast. - oxybutynin ER (DITROPAN XL) 15 mg 24 hr Extended Rel Tab 15 mg. - mirabegron (MYRBETRIQ) 25 mg Tb24 Take 25 mg by mouth once daily. Meds Comments as of 01/10/2009: Pt is allergic to an unknown BP med, will bring in the name of it at next appt. Joseline Pimentel LPN Problem List As Of Date 01/29/2024 Noted Resolved Benign Neoplasm of Cerebral Meninges [D32.0] 06/30/2009 Malignant neoplasm of female breast (HCC) [C50.*03/09/2014 History of breast cancer [Z85.3] 08/30/2014 Osteopenia [M85.80] 03/29/2016 Encounter Status:Closed by JESSICA HARRIS on 01/29/24 Normal [facility] CREATININEon 04-04-2022 Creatinine [Mass/Vol] 0.86 mg/dL Normal 0.55-1.02 [facility] Comment on above: Performed By: #### C KAPIL #### [facility] [address] [place] [address] Dr. Clark Mello EGFR-AF URUGUAYAN >60 Normal >=60 [facility] Comment on above: Performed By: #### C KAPIL #### [facility] [address] [place] [address] Dr. Clark Mello EGFR-NON AF URUGUAYAN >60 Normal >=60 [facility] Comment on above: Performed By: #### C KAPIL #### [facility] [address] [place] [address] Dr. Clark Mello MRI BRAIN WO W CONon 022 MRI BRAIN WO W CON EXAMINATION: MRI BRAIN WO W CON HISTORY: Benign neoplasm of meninges ; history of breast cancer COMPARISON: MRI brain 02/01/2020 TECHNIQUE: A variety of imaging planes and parameters were utilized for visualization of suspected pathology. Images were performed without and with a Dotarem contrast. FINDINGS: CEREBRUM: Mild atrophy and chronic small vessel ischemic changes. No edema, hemorrhage, mass, acute infarction, or inappropriate atrophy. CEREBELLUM: Extra-axial dural based enhancing mass protruding into posterior margin of right cerebellum, with mass 1.8 x 1.3 x 1.0 cm. No edema, hemorrhage, mass, acute infarction, or inappropriate atrophy. BRAINSTEM: No edema, hemorrhage, mass, acute infarction, or inappropriate atrophy. CSF SPACES: Ventricles, cisterns, and sulci are appropriate for age. No hydrocephalus, subarachnoid hemorrhage, or mass. SKULL: No mass or other significant visible lesion. SINUSES: Limited views demonstrate no significant mucosal thickening or fluid. ORBITS: Limited views are unremarkable. OTHER: No abnormal meningeal or parenchymal enhancement. IMPRESSION: 1. Minimal increase in size of an otherwise benign-appearing meningioma posterior to the right cerebellum. 2. Mild age consistent atrophy and chronic small vessel ischemic changes. 3. No findings to suggest metastatic disease. Electronically authenticated by: MERYL WILL Date: 2022-04-04 12:58 Normal [facility] Outside Colonoscopyon 2021 Outside Colonoscopy [id number] #1.00CD:127 Normal [facility] Lab Reportson 03-26-2022 Lab Reports [id number] #1.00CD:127 Normal [facility] Covid-19 PCR ([facility])on 02-28 SARS-CoV-2 (COVID-19) RNA LEONID+probe Ql (Unsp spec) Not detected Normal NOT DETECTED [facility] Comment on above: Result Comment: When diagnostic testing is negative, the possibility of a false negative should be considered in the context of a patient's recent exposures and the presence of clinical signs and symptoms consistent with SARS-CoV-2. This test is not yet approved or cleared by the [place] FDA. When there are no FDA-approved or cleared tests available, and other criteria are met, FDA can make tests available under an emergency access mechanism called an Emergency Use Authorization (EUA). The EUA for this test is supported by the [place] of Health and Human Service's declaration that circumstances exist to justify the emergency use of in vitro diagnostics for the detection and/or diagnosis of the virus that causes COVID-19. This EUA will remain in effect for the duration of the COVID-19 declaration justifying emergency of IVDs, unless it is terminated or revoked by the FDA (after which the test may no longer be used). Performed By: #### C VDTB #### [facility] [address] [place] [address] Dr. Clark Mello Consent for Procedure/Surger yon 03-01-2022 Consent for Procedure/Surgery [id number] #1.00CD:127 Normal [facility] Ambulatory Visit Summaryon 1 04-30-2021 Ambulatory Visit Summary RAMEZ HERMAN :1940 Visit Date:02/28/2022 Ambulatory Visit Instructions Your Care Team Attending Physician - WILL MOURA, Inge Escobedo Primary Care Physician - ROMARIO LOBO JR, DO Referring Physician - ROMARIO LOBO JR, DO This Is Your Medications List Contact prescribing physician if questions or concerns buPROPion (buPROPion 150 mg ER Tab) famotidine (famotidine 20 mg Tab) levothyroxine (levothyroxine 50 mcg (0.05 mg) Tab) mirabegron (Myrbetriq 50 mg oral tablet, extended release) oxybutynin (oxybutynin 15 mg ER Tab) polyethylene glycol 3350 (MiraLax) triamcinolone topical (triamcinolone Top 0.5% Crm) Procedures Performed Colonoscopy (04/11/2018), Colonoscopy (2011), Arthroplasty of right knee, History of arthroplasty of left knee, Lumpectomy of right breast, Repair of rectocele, Suspension of bladder, NICOLA - Total abdominal hysterectomy. Discharge Vitals Heart Rate (Peripheral) 76 Respiratory Rate 16 Blood Pressure 156/96 Height 160 cm Height 63 in Weight 82.7 kg Weight 181.94 lb BMI 32.3 Medications What How Much When Instructions Unchanged buPROPion (buPROPion 150 mg ER Tab) 1 Tablets By Mouth Every day Contact prescribing physician if questions or concerns Unchanged famotidine (famotidine 20 mg Tab) 1 Tablets By Mouth 2 times a day Contact prescribing physician if questions or concerns Unchanged levothyroxine (levothyroxine 50 mcg (0.05 mg) Tab) 1 Tablets By Mouth Every day Contact prescribing physician if questions or concerns Unchanged mirabegron (Myrbetriq 50 mg oral tablet, extended release) 1 Tablets By Mouth Every day Contact prescribing physician if questions or concerns Unchanged oxybutynin (oxybutynin 15 mg ER Tab) 1 Tablets By Mouth Every day Contact prescribing physician if questions or concerns Unchanged polyethylene glycol 3350 (MiraLax) 17 Gram By Mouth Every day Contact prescribing physician if questions or concerns Unchanged triamcinolone topical (triamcinolone Top 0.5% Crm) 1 Application Topical 2 times a day Contact prescribing physician if questions or concerns Allergies oxaprozin (Unknown) sulfamethoxazole-tri methoprim (Urticaria, Eruption) Problems Ongoing - Any problem that you are currently receiving treatment for. Asthma BMI 32.0-32.9,adult Chronic constipation Chronic obstructive pulmonary disease Depression Diverticulosis GERD (gastroesophageal reflux disease) History of DVT (deep vein thrombosis) History of malignant neoplasm of breast History of uterine cancer HTN (hypertension) Hyperlipidemia Osteopenia Positive colorectal cancer screening using Cologuard test Normal [facility] Physician Referralon 022 Physician Referral [id number] #[id number] Normal [facility] MG MAMM DIAGNOSTIC 3D REYNALDO CA Don 01-29-2022 MG MAMM DIAGNOSTIC 3D REYNALDO CAD Patient: RAMEZ HERMAN Exam Date: 01/29/2022 : 1940 Gender:F Ordering : DR MELISSA ANSARI M.D. Admission #: [id number] Family : DR ROMARIO LOBO D.O. Order #: [id number] CLICK HERE TO VIEW EXAM RADIOLOGY REPORT PROCEDURE: MAMMOGRAM DIAGNOSTIC 3D BILATERAL CAD COMPARISON: MG MAMM REYNALDO DIAG W CAD, 02/01/2020. MG MAMM DIAGNOSTIC 3D REYNALDO CAD, 02/03/2021. INDICATIONS: Primary malignant neoplasm of female breast Calculator Name NCI Breast Cancer Risk Assessment Tool 5 Year Breast Cancer Risk n/a% Lifetime Breast Cancer Risk n/a% Personal Breast Cancer Yes, rt breast,2014 Personal Ovarian Cancer No Treatments Hysterectomy-radiati on-chemotherapy, radiation Family Cancers Mother with kidney cancer at age 50; Grandmother-maternal with unknown cancer at age 90; Brother with prostate cancer at age 50; Son with melanoma cancer at age 52. LOCATION: [facility] BREAST COMPOSITION: Scattered areas fibroglandular density. FINDINGS: DIAGNOSTIC CATEGORY 2--BENIGN FINDING. NO CHANGE FROM COMPARISON. Extensive bilateral benign-appearing vascular and linear/punctate calcifications likely secretory. Scattered benign-appearing nodules are present. RIGHT BREAST: No significant suspicious finding. Asymmetrically small, stable. Linear scar markers. Micro clip marker 6 o'clock posterior breast, unchanged LEFT BREAST: No significant suspicious finding. RECOMMENDATIONS: ROUTINE MAMMOGRAM AND CLINICAL EVALUATION IN 12 MONTHS. PLEASE NOTE: A NORMAL MAMMOGRAM DOES NOT EXCLUDE THE POSSIBILITY OF BREAST CANCER. A CLINICALLY SUSPICIOUS PALPABLE LUMP SHOULD BE BIOPSIED. Dictated by: Viviana Aguero MD on 01/29/2022 at 08:20 Approved by: Viviana Aguero MD on 01/29/2022 at 08:24 Normal [facility] Vital Signs Date Time Vital Sign Value Performing Clinician Facility 02-12-2024 08:47-0400 Body mass index (BMI) [Ratio] 30.23 kg/m2 LINDA Ansari MD Work Phone: [facility] 02-12-2024 08:47-0400 Body temperature 98.1 [degF] LINDA Ansari MD Work Phone: [facility] 02-12-2024 08:47-0400 Body weight 75 kg LINDA Ansari MD Work Phone: [facility] 02-12-2024 08:47-0400 Diastolic blood pressure 84 mm[Hg] LINDA Ansari MD Work Phone: [facility] 02-12-2024 08:47-0400 Heart rate 104 /min LINDA Ansari MD Work Phone: [facility] 02-12-2024 08:47-0400 Respiratory rate 18 /min LINDA Ansari MD Work Phone: [facility] 02-12-2024 08:47-0400 SaO2% (BldA) [Mass fraction] 98 % LINDA Ansari MD Work Phone: [facility] 02-12-2024 08:47-0400 Systolic blood pressure 153 mm[Hg] LINDA Ansari MD Work Phone: [facility] 02-06-2023 08:46-0400 Body temperature 97.59 [degF] LINDA Ansari MD Work Phone: [facility] 02-06-2023 08:46-0400 Body weight 81.65 kg LINDA Ansari MD Work Phone: [facility] 02-06-2023 08:46-0400 Diastolic blood pressure 91 mm[Hg] LINDA Ansari MD Work Phone: [facility] 02-06-2023 08:46-0400 Heart rate 82 /min LINDA Ansari MD Work Phone: [facility] 02-06-2023 08:46-0400 Respiratory rate 16 /min LINDA Ansari MD Work Phone: [facility] 02-06-2023 08:46-0400 SaO2% (BldA) [Mass fraction] 97 % LINDA Ansari MD Work Phone: [facility] 02-06-2023 08:46-0400 Systolic blood pressure 154 mm[Hg] LINDA Ansari MD Work Phone: [facility] 02-28-2022 14:30-0400 Blood Pressure Location Ineg BARTON [facility] [place] 02-28-2022 14:30-0400 Diastolic blood pressure 96 mm[Hg] Inge BARTON [facility] [place] 02-28-2022 14:30-0400 Heart rate 76 /min Inge BARTON [facility] [place] 02-28-2022 14:30-0400 Respiratory rate 16 /min Inge BARTON [facility] [place] 02-28-2022 14:30-0400 Systolic blood pressure 156 mm[Hg] Inge BARTON [facility] [place] 02-07-2022 08:37-0400 Body temperature 96.69 [degF] LINDA Ansari MD Work Phone: [facility] 02-07-2022 08:37-0400 Body weight 83.01 kg LINDA Ansari MD Work Phone: [facility] 02-07-2022 08:37-0400 Diastolic blood pressure 73 mm[Hg] LINDA Ansari MD Work Phone: [facility] 02-07-2022 08:37-0400 Heart rate 83 /min LINDA Ansari MD Work Phone: [facility] 02-07-2022 08:37-0400 Respiratory rate 18 /min LINDA Ansari MD Work Phone: [facility] 02-07-2022 08:37-0400 SaO2% (BldA) [Mass fraction] 95 % LINDA Ansari MD Work Phone: [facility] 02-07-2022 08:37-0400 Systolic blood pressure 156 mm[Hg] LINDA Ansari MD Work Phone: [facility] Encounters Encounter Date Encounter Type Care Provider Facility Start: 02-12-2024 End: 02-12-2024 ambulatory Yassine ANSARI Facility:[facility] Start: 02-12-2024 End: 02-12-2024 Patient encounter procedure Yassine Ansari MD Work Phone: Radiation Oncology Comment on above: History of breast ca ncer (Primary Dx) Start: 01-29-2024 End: 01-29-2024 Telephone encounter Yassine Ansari MD Work Phone: [facility] Start: 02-06-2023 End: 02-06-2023 Patient encounter procedure Yassine Ansari MD Work Phone: Radiation Oncology Comment on above: 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, estrogen receptor positive, unspecified laterality, unspecified site of breast (HCC) (Primary Dx); Benign neoplasm of meninges (HCC) Start: 01-07-2023 Telephone encounter Yassine Ansari MD Work Phone: Radiation Oncology Comment on above: Orders Start: 04-04-2022 End: 04-05-[address] ROMARIO LOBO Facility: Start: 04-02-2022 Telephone encounter Yassine Ansari MD Work Phone: Radiation Oncology Comment on above: Orders Start: 03-28-2022 Encounter for preprocedural laboratory examination DR INGE BARTON [facility] Start: 03-28-2022 End: 03-29-2022 ambulatory Inge BARTON Facility:CD:[id number] Start: 03-24-2022 End: 03-25-[address] INGE BARTON Facility:[facility] Start: 03-24-2022 End: 03-25-2022 Encounter for preprocedural laboratory examination DR INGE BARTON Facility:[facility] Start: 02-28-2022 End: 03-01-2022 ambulatory ROMARIO LOBO PROVIDER Facility:[facility] Start: 02-28-2022 End: 02-28-2022 Patient encounter procedure Inge BARTON [facility] Start: 02-07-2022 End: 02-07-2022 Patient encounter procedure Yassine Ansari MD Work Phone: Radiation Oncology Comment on above: 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, estrogen receptor positive, unspecified laterality, unspecified site of breast (HCC) (Primary Dx); Benign neoplasm of meninges (HCC) Start: 02-02-2022 ambulatory ROMARIO LOBO PROVIDER Facility:[facility] Start: 01-29-2022 Patient encounter procedure [facility] Provider [facility] Department Start: 01-29-2022 End: 01-30-[address] MELISSA ANSARI Facility:[facility] Procedures Date Procedure Procedure Detail Performing Clinician Start: 04-11-2018 Colonoscopy Inge BROOKE Start: 04-29-2011 Colonoscopy Inge BROOKE Arthroplasty of right knee Dana marta BARTON Cystopexy Inge BARTON History of arthropla sty of left knee Inge BARTON Lumpectomy of right breast Dana BARTON Repair of rectocele Inge BARTON Total abdominal hysterectomy Inge BARTON Plan of Treatment Date Care Activity Detail Author Start: 01-15-2034 Urine microalbumin profile DTaP,Tdap,Td Vaccine (2 - Td or Tdap) [facility] Start: 02-17-2025 End: 02-17-2025 Patient encounter procedure 02/17/2025 9:00 AM EDT Office Visit Radiation Oncology [address] [place] [address] Yassine Ansari MD [address] [place] [address] 1 yr follow up Radiation Oncology Comment on above: 1 yr follow up Start: 02-11-2025 End: 03-13-2025 MG Breast - bilateral Diagnostic [facility] DIAGNOSTIC BILATERAL Radiology Routine History of breast cancer Expected: 02/11/2025 (Approximate), Expires: 03/13/2025 [facility] Work Phone: Comment on above: Expected: 02/11/2025 (Approximate), Expires: 03/13/2025 Start: 03-12-2024 Shingrix Vaccine (2 of 2) Shingrix Vaccine (2 of 2) [facility] Start: 02-12-2024 End: 02-12-2024 Patient encounter procedure 02/12/2024 9:00 AM EDT Office Visit Radiation Oncology [address] [place] [address] Yassine Ansari MD [address] [place] [address] [place] [address] 1 yr follow up Radiation Oncology Comment on above: 1 yr follow up Start: 02-07-2024 End: 03-07-2024 Mri brain brain stem w/o w/contrast material MRI BRAIN WO/W IVCON Radiology Routine Benign neoplasm of meninges (HCC) Expected: 02/07/2024 (Approximate), Expires: 03/07/2024 [facility] Work Phone: Comment on above: Expected: 02/07/2024 (Approximate), Expires: 03/07/2024 Start: 02-01-2024 End: 03-07-2024 KATHERINE DIAGNOSTIC BILATERAL KATHERINE DIAGNOSTIC BILATERAL Radiology Routine Malignant neoplasm of breast in female, estrogen receptor positive, unspecified laterality, unspecified site of breast (HCC) Expected: 02/01/2024, Expires: 03/07/2024 [facility] Work Phone: Comment on above: Expected: 02/01/2024 , Expires: 03/07/2024 Start: 01-29-2024 End: 04-29-2024 CREATININE BLD CREATININE BLD Lab Routine Benign neoplasm of cerebral meninges (HCC) Expected: 01/29/2024, Expires: 04/29/2024 [facility] Work Phone: Comment on above: Expected: 01/29/2024 , Expires: 04/29/2024 Start: 12-29-2023 Covid-19 Vaccine () Covid-19 Vaccine () [facility] Start: 12-29-2023 Influenza vaccination Influenza Vacc ine (#1) [facility] Start: 04-29-2023 Advance Directive Discussion Advance Directive Discussion [facility] Start: 02-07-2023 End: 03-09-2023 Diagnostic mammography computer-aided detcj bi [facility] DIAGNOSTIC BILAT Radiology Routine Malignant neoplasm of breast in female, estrogen receptor positive, unspecified laterality, unspecified site of breast (HCC) Expected: 02/07/2023 (Approximate), Expires: 03/09/2023 [facility] Work Phone: Comment on above: Expected: 02/07/2023 (Approximate), Expires: 03/09/2023 Start: 12-28-2022 Covid-19 Vaccine () Covid-19 Vaccine () [facility] Start: 12-28-2022 Influenza vaccination [facility] Start: 04-29-2022 ADVANCE DIRECTIVE DISCUSSION ADVANCE DIRECTIVE DISCUSSION [facility] Start: 04-29-2022 DEPRESSION ASSESSMENT DEPRESSION ASS ESSMENT [facility] Start: 04-02-2022 End: 06-02-2022 CREATININE BLD CREATININE BLD Lab Routine Malignant neoplasm of breast in female, estrogen receptor positive, unspecified laterality, unspecified site of breast (HCC) Benign neoplasm of meninges (HCC) Expected: 04/02/2022, Expires: 06/02/2022 [facility] Work Phone: Comment on above: Expected: 04/02/2022 , Expires: 06/02/2022 Start: 12-28-2021 Influenza vaccination INFLUENZA (#1) [facility] Start: 07-30-2021 DIABETES SCREEN DIABETES SCREEN [facility] Start: 07-30-2021 Diabetes Screening Diabetes Screenin g [facility] Start: 06-14-2021 COVID-19 VACCINE (4 - Booster for Pfizer series) COVID-19 VACCINE (4 - Booster for Pfizer series) [facility] Start: 06-14-2021 COVID-19 VACCINE (4 - Pfizer series) COVID-19 VACCINE (4 - Pfizer series) [facility] Start: 04-29-2021 ADVANCE DIRECTIVE DISCUSSION ADVANCE DIRECTIVE DISCUSSION [facility] Start: 04-29-2021 DEPRESSION ASSESSMENT DEPRESSION ASS ESSMENT [facility] Start: 01-19-2021 Pneumococcal Vaccine : 65+ (2 - PCV) Pneumococcal Vaccine: 65+ (2 - PCV) [facility] Start: 01-19-2021 Pneumococcal Vaccine : 65+ (2 of 2 - PCV) Pneumococcal Vaccine: 65+ (2 of 2 - PCV) [facility] Start: 01-19-2021 PNEUMOCOCCAL: 65+ (2 - PCV) PNEUMOCOCCAL: 65+ (2 - PCV) [facility] Start: 08-04-2020 COVID-19 VACCINE (3 - Booster for Pfizer series) COVID-19 VACCINE (3 - Booster for Pfizer series) [facility] Start: 2014 RSV Vaccine (1 - 1-d ose 75+ series) RSV Vaccine (1 - 1-dose 75+ series) [facility] Start: 01-26-2004 BONE DENSITY BONE DENSITY [facility] Start: 01-26-2004 Bone Density Screening Bone Density Screening [facility] Start: 01-26-2004 Screening for osteoporosis Bone Density Screening [facility] Start: 1989 SHINGRIX VACCINE (1 of 2) SHINGRIX VACCINE (1 of 2) [facility] Start: 1958 Urine microalbumin profile [facility] Start: 1957 Anxiety Screening Anxiety Screening [facility] Start: 1957 Depression Screening Depression Scre ening [facility] End: 02-06-2024 KATHERINE DIAGNOSTIC BILATERAL KATHERINE DIAGNOSTIC BILATERAL Radiology Routine Malignant neoplasm of breast in female, estrogen receptor positive, unspecified laterality, unspecified site of breast (HCC) History of breast cancer History of right breast cancer 1 Occurrences starting 01/07/2023 until 02/06/2024 [facility] Work Phone: Comment on above: 1 Occurrences starti ng 01/07/2023 until 02/06/2024 End: 03-09-2023 Mri brain brain stem w/o w/contrast material MRI BRAIN WO/W IVCON Radiology Routine Benign neoplasm of meninges (HCC) 1 Occurrences starting 02/07/2022 until 03/09/2023 [facility] Work Phone: Comment on above: 1 Occurrences starti ng 02/07/2022 until 03/09/2023 [facility] Immunizations Immunization Date Immunization Notes Care Provider [facility] 02-15-2021 influenza virus vacc ine, unspecified formulation LINDA Ansari MD Work Phone: [facility] 01-28-2020 influenza virus vacc ine, unspecified formulation [facility] 01-20-2020 influenza, high-dose , quadrivalent vaccine (FLUZONE HIGH DOSE QUADRIVALENT) [facility] 01-20-2020 pneumococcal polysaccharide vaccine, 23 valent [facility] 12-28-2010 influenza nasal, unspecified formulation [facility] Provider [facility] Payers Date Payer Category Payer Medicare UHC MEDICARE UHC MEDICARE ADVANTAGE PPO [id number] 2020-Present [phone] [address] [address] [place] [address] PPO [id number] 1960 Private Health Insurance [id number] 1940 Unknown [id number] 1940 Unknown [id number] Unknown [id number] 1940 Unknown [id number] 1940 Unknown [id number] 1940 Unknown [id number] Social History Date Type Detail Facility Start: 09-17-2011 End: 02-28-2022 Tobacco smoking status NHIS Never smoked tobacco [facility] Start: 09-17-2011 Tobacco use and exposure Smokeless tobacco non-user [facility] Start: 02-08-2021 End: 02-06-2023 Alcohol intake Not Asked [facility] Start: 1940 Sex Assigned At Female C [facility] Start: 01-28-2022 End: 02-07-2022 Exposure to SARS-CoV-2 (event) Not sure [facility] Tobacco smoking status Never [facility] [place] Start: 02-08-2021 End: 02-06-2023 Sex Assigned At Female [facility] Start: 02-08-2021 End: 02-06-2023 History of Social function [facility] Start: 12-18-2018 Gender identity Identifies as female gender (finding) [facility] Start: 12-18-2018 Sexual orientation Heterosexual (fin camille) [facility] Functional Status Date Assessment Result Facility 02-28-2022 Functional Status N/A [facility] Clinical Notes 02-07-2022 to 02-12-2024 Yassine Ansari MD - 02/12/2024 9:00 AM EDTAddendum Note - Yassine Ansari MD - 01/29/2024 4:01 PM EDTAddendum Note - Yassine Ansari MD - 01/29/2024 4:01 PM EDT Note Date & Type Note Facility 02-12-2024 History of Presen t illness Narrative Images from the original note were not included. Radiation Oncology - Follow Up Note PATIENT NAME: Ramez Herman PATIENT Treatment Technique: conformal Imaging: portal imaging Date Start: 03/29/2014 Date Complete: 05/11/2014 Treatment Area Number [employer] Number of Fractions (Elapsed Days) Dose Right Breast 5 6/18 MV 25(36) 5000cGy Right Breast Boost 1 16 MEV 5(6) 1000cGy Total 30(43) 6000cGy DIAGNOSIS: 1. Breast cancer, right, [id number] status post right breast radiation completed in 2014. 2. Right cerebellar convexity meningioma. 3. Endometrial cancer with prior hysterectomy and INTERVAL HISTORY: Ramez Herman presents for follow no new problems or concerns. She states she has been doing well. Denies any logic issues, denies headache or vision change. Denies changes on self breast exam. No upper extremity lymphedema. Denies cough chest pain or shortness of breath. She is staying active. . Mammography: 02/03/24: bilateral mammography. BIRADS2 No suspicious findings or changes. Interval 12 month mammogram recommended. MRI Brain 02/04/24: Stable, no progression. No other significant findings. ALLERGIES: ALLERGIES Allergen Reactions Bactrim [Sulfametho* Rash, Hives red spots Daypro [Oxaprozin] Other: See Comments Other reaction(s): SEVERE HEAD PAIN Other reaction(s): BAD PAIN IN HEAD MEDICATIONS: buPROPion SR (ZYBAN SR; WELLBUTRIN SR) 150 mg 12 hr tablet Take by mouth. losartan (COZAAR) 25 mg tablet montelukast (SINGULAIR) 10 mg tablet Take 10 mg by mouth daily at bedtime. famotidine (PEPCID) 20 mg tablet Take 20 mg by mouth twice daily. levothyroxine 50 mcg cap Take 50 mcg by mouth daily before breakfast. oxybutynin ER (DITROPAN XL) 15 mg 24 hr Extended Rel Tab 15 mg. mirabegron (MYRBETRIQ) 25 mg Tb24 Take 25 mg by mouth once daily. PHYSICAL EXAM: VS: BP 153/84 Pulse 104 Temp 36.7 C (98.1 F) Resp 18 Wt 75 kg (165 lb 5.5 oz) SpO2 98% BMI 30.23 kg/m KPS: 100 PHYSICAL EXAM: General Appearance: Well appearing, alert, in no acute distress, well-hydrated, well nourished.. Skin: Skin color, texture, turgor normal, no suspicious rashes or lesions. Lungs: Lungs clear to auscultation. No wheezing, rhonchi, rales.. Abdomen: Normal abdominal exam, Abdomen soft, non-tender. Bowel sounds normal. No masses, organomegaly. Neurologic: Nonfocal alert and oriented 3 cranial nerves II through XII intact. Gait and station normal. So how long can you stated that her larynx today feel like there is a documentary I think that some of the morning but I did not know if he had stuff going on the abdomen -9 is perfect Breast: bilateral breasts are symmetric, minimal posttreatment changes on the right. No suspicious or dominant nodularity. The sensitive examination was discussed with the Patient or Patient's Authorized Grain Inspector. As applicable, any other physician, advance practice provider, medical student, or other health professional student that will be observing or involved in the sensitive examination for educational or training purposes was discussed with the Patient or Authorized Grain Inspector. The Patient or Authorized Grain Inspector has agreed to proceed with the sensitive examination. (Sensitive examination includes inspection and/or palpation of the breasts, pelvis, prostate and anorectal regions, renal dietitian present) ASSESSMENT/PLAN: 1. Breast cancer, right, [id number] Clinically doing well. No late radiation problems or evidence of recurrence. Plan return in one year with mammography 2. Right cerebellar convexity meningioma, MRI documents continued stability. Patient is due for every other year MRI brain. This will be due next fall will have this done prior to the visit. 3. Endometrial cancer. No evidence of clinical recurrence. Signed by: Yassine Ansari MD Cc:Dr. Lobo Portions of the above note extracted and edited from previous visit as well as active information included in the EMR. documented in this encounter [facility] 02-12-2024 Note HNO ID: [id number] Author: Yassine ANSARI MD Service: ? Author Type: Physician Type: Progress Notes Filed: 02/12/2024 09:07 Note Text: Radiation Oncology - Follow Up Note PATIENT NAME: Ramez Herman PATIENT Treatment Technique: conformal Imaging: portal imaging Date Start: 03/29/2014 Date Complete: 05/11/2014 Treatment Area Number [employer] Number of Fractions (Elapsed Days) Dose Right Breast 5 6/18 MV 25(36) 5000cGy Right Breast Boost 1 16 MEV 5(6) 1000cGy Total 30(43) 6000cGy DIAGNOSIS: 1. Breast cancer, right, [id number] status post right breast radiation completed in 2014. 2. Right cerebellar convexity meningioma. 3. Endometrial cancer with prior hysterectomy and INTERVAL HISTORY: Ramez Herman presents for follow no new problems or concerns. She states she has been doing well. Denies any logic issues, denies headache or vision change. Denies changes on self breast exam. No upper extremity lymphedema. Denies cough chest pain or shortness of breath. She is staying active. . Mammography: 02/03/24: bilateral mammography. BIRADS2 No suspicious findings or changes. Interval 12 month mammogram recommended. MRI Brain 02/04/24: Stable, no progression. No other significant findings. ALLERGIES: ALLERGIES Allergen Reactions Bactrim [Sulfametho* Rash, Hives red spots Daypro [Oxaprozin] Other: See Comments Other reaction(s): SEVERE HEAD PAIN Other reaction(s): BAD PAIN IN HEAD MEDICATIONS: buPROPion SR (ZYBAN SR; WELLBUTRIN SR) 150 mg 12 hr tablet Take by mouth. losartan (COZAAR) 25 mg tablet montelukast (SINGULAIR) 10 mg tablet Take 10 mg by mouth daily at bedtime. famotidine (PEPCID) 20 mg tablet Take 20 mg by mouth twice daily. levothyroxine 50 mcg cap Take 50 mcg by mouth daily before breakfast. oxybutynin ER (DITROPAN XL) 15 mg 24 hr Extended Rel Tab 15 mg. mirabegron (MYRBETRIQ) 25 mg Tb24 Take 25 mg by mouth once daily. PHYSICAL EXAM: VS: BP 153/84 Pulse 104 Temp 36.7 ?C (98.1 ?F) Resp 18 Wt 75 kg (165 lb 5.5 oz) SpO2 98% BMI 30.23 kg/m? KPS: 100 PHYSICAL EXAM: General Appearance: Well appearing, alert, in no acute distress, well-hydrated, well nourished.. Skin: Skin color, texture, turgor normal, no suspicious rashes or lesions. Lungs: Lungs clear to auscultation. No wheezing, rhonchi, rales.. Abdomen: Normal abdominal exam, Abdomen soft, non-tender. Bowel sounds normal. No masses, organomegaly. Neurologic: Nonfocal alert and oriented ?3 cranial nerves II through XII intact. Gait and station normal. So how long can you stated that her larynx today feel like there is a documentary I think that some of the morning but I did not know if he had stuff going on the abdomen -9 is perfect Breast: bilateral breasts are symmetric, minimal posttreatment changes on the right. No suspicious or dominant nodularity. The sensitive examination was discussed with the Patient or Patient's Authorized Grain Inspector. As applicable, any other physician, advance practice provider, medical student, or other health professional student that will be observing or involved in the sensitive examination for educational or training purposes was discussed with the Patient or Authorized Grain Inspector. The Patient or Authorized Grain Inspector has agreed to proceed with the sensitive examination. (Sensitive examination includes inspection and/or palpation of the breasts, pelvis, prostate and anorectal regions, renal dietitian present) ASSESSMENT/PLAN: 1. Breast cancer, right, [id number] Clinically doing well. No late radiation problems or evidence of recurrence. Plan return in one year with mammography 2. Right cerebellar convexity meningioma, MRI documents continued stability. Patient is due for every other year MRI brain. This will be due next fall will have this done prior to the visit. 3. Endometrial cancer. No evidence of clinical recurrence. Signed by: Yassine Ansari MD Cc:Dr. Lobo Portions of the above note extracted and edited from previous visit as well as active information included in the EMR. [facility] 01-29-2024 Note Addended by: Yassine ANSARI on: 01/29/2024 04:01 PM Modules accepted: Orders [facility] Work Phone: 01-29-2024 Miscellaneous Notes Addended by: Yassine ANSARI on: 01/29/2024 04:01 PM Modules accepted: Orders Addended by: RON MONTNEEGRO on: 01/29/2024 02:04 PM Modules accepted: Orders Please sign pended creatinine order for upcoming MRI. Fax order to [facility]. Ron Montenegro RN Ramez is scheduled for her MRI on February 03 at 12:30pm At the [facility]. TINO can we please fax over a creatine order for her per their request? Thank you documented in this encounter [facility] 01-29-2024 Note Addended by: RON MONTENEGRO on: 01/29/2024 02:04 PM Modules accepted: Orders [facility] 01-29-2024 Telephone encount er Note Please sign pended creatinine order for upcoming MRI. Fax order to [facility]. Ron Montenegro RN [facility] 01-29-2024 Telephone encount er Note Ramez is scheduled for her MRI on February 03 at 12:30pm At the [facility]. TINO can we please fax over a creatine order for her per their request? Thank you [facility] 02-06-2023 History of Presen t illness Narrative Images from the original note were not included. Radiation Oncology - Follow Up Note PATIENT NAME: Ramez Herman PATIENT Treatment Technique: conformal Imaging: portal imaging Date Start: 03/29/2014 Date Complete: 05/11/2014 Treatment Area Number [employer] Number of Fractions (Elapsed Days) Dose Right Breast 5 6/18 MV 25(36) 5000cGy Right Breast Boost 1 16 MEV 5(6) 1000cGy Total 30(43) 6000cGy DIAGNOSIS: 1. Breast cancer, right, [id number] status post right breast radiation completed in 2014. 2. Right cerebellar convexity meningioma. 3. Endometrial cancer with prior hysterectomy and INTERVAL HISTORY: Ramez Herman presents for follow no new problems or concerns. Staying active. Denies headache or vision change. Denies changes on self breast exam. No upper extremity lymphedema. Denies cough chest pain or shortness of breath. . Mammography: 01/30/23: bilateral mammography. No suspicious findings or changes. Interval 12 month mammogram recommended. MRI Brain 04/04/22: Minimal change in size of right post. fossa meningioma. No other significant findings. ALLERGIES: ALLERGIES Allergen Reactions Bactrim [Sulfametho* Rash, Hives red spots Daypro [Oxaprozin] Other: See Comments Other reaction(s): SEVERE HEAD PAIN Other reaction(s): BAD PAIN IN HEAD MEDICATIONS: buPROPion SR (ZYBAN SR; WELLBUTRIN SR) 150 mg 12 hr tablet Take by mouth. famotidine (PEPCID) 20 mg tablet Take 20 mg by mouth twice daily. iv contrast (will be provided with radiology test) MRI Brain Inject, intravenously, once for 1 dose.No IV access, insert saline lock prior to beginning of sedation, infusion, injection of imaging exam.Discontinue saline lock post exam. If Pt. has a central line or IVAD, may access for administration according to line specific nursing protocol.Once exam is complete flush line and de-access according to line specific nursing protocol in the MR contrast administration guidelines link levothyroxine 50 mcg cap Take 50 mcg by mouth daily before breakfast. losartan (COZAAR) 25 mg tablet mirabegron (MYRBETRIQ) 25 mg Tb24 Take 25 mg by mouth once daily. montelukast (SINGULAIR) 10 mg tablet Take 10 mg by mouth daily at bedtime. oxybutynin ER (DITROPAN XL) 15 mg 24 hr Extended Rel Tab 15 mg. PHYSICAL EXAM: VS: BP 154/91 Pulse 82 Temp 36.4 C (97.6 F) Resp 16 Wt 81.6 kg (180 lb) SpO2 97% BMI 32.91 kg/m KPS: 100 PHYSICAL EXAM: General Appearance: Well appearing, alert, in no acute distress, well-hydrated, well nourished.. Skin: Skin color, texture, turgor normal, no suspicious rashes or lesions. Lungs: Lungs clear to auscultation. No wheezing, rhonchi, rales.. Abdomen: Normal abdominal exam, Abdomen soft, non-tender. Bowel sounds normal. No masses, organomegaly. Neurologic: Nonfocal alert and oriented 3 cranial nerves II through XII intact. Breast: bilateral breasts are symmetric, minimal posttreatment changes on the right. No suspicious or dominant nodularity. ASSESSMENT/PLAN: 1. Breast cancer, right, [id number] Clinically doing well. No late radiation problems or evidence of recurrence. Plan return in one year with mammography 2. Right cerebellar convexity meningioma, MRI documents continued stability. Patient is due for every other year MRI brain. This will be due next fall will have this done prior to the visit. 3. Endometrial cancer. No evidence of clinical recurrence. Signed by: Yassine Ansari MD Cc:Dr. Lobo Portions of the above note extracted and edited from previous visit as well as active information included in the EMR. documented in this encounter [facility] 01-07-2023 Miscellaneous Notes Formattin g of this note might be different from the original. Patient's Mammogram is not meeting medical necessity per [facility] guidelines. Please review and sign new order. We will fax to [facility] at [phone]. Deysi Damon RN documented in this encounter [facility] 04-02-2022 Miscellaneous Notes Formattin g of this note might be different from the original. Order faxed to [facility]. Ron Montenegro LPN [facility] scheduling called requesting a creatinine result or order. Please sign pended creatinine order and we will fax to [facility] scheduling at [phone]. Ron Montenegro LPN documented in this encounter [facility] 03-28-2022 Note OPERATIVE NOTE OPERATION DATE: 03/28/2022 PREOPERATIVE DIAGNOSIS: Positive Cologuard. POSTOPERATIVE DIAGNOSIS: Redundant colon with sigmoid diverticulosis. PROCEDURE: Colonoscopy to cecum. SURGEON: Inge Barton M.D. ANESTHESIA: Monitored anesthesia care. ESTIMATED BLOOD LOSS: Zero. INDICATIONS AND CONSENT: Patient is a 82-year-old female with recent positive Cologuard. Indications, risks, benefits, alternatives of proceeding with colonoscopy were explained extensively to the patient, including the risks of bleeding, colon perforation or anesthetic complications. All of her questions were answered. Informed consent was obtained. PROCEDURE: Patient brought to the operating room, placed in the left lateral decubitus position. Monitored anesthesia care was provided. Rectal exam was performed which showed no masses or blood. The scope was then inserted into the anal canal. Under direct visualization was advanced. This was a pediatric scope. With the aid of abdominal compression, it was advanced to the cecum where cecal markings were clearly identified. There was noted to be some liquid and semi-solid stool throughout the colon that was partially irrigated clear. Upon withdrawal of the scope, mucosal surfaces were carefully examined. There were no mass lesions or polyps noted. No inflammatory changes or ulcerations. There was moderate to severe sigmoid diverticulosis as well as redundancy and spasm of the colon. The scope was retroflexed in the anal canal. There was some hypertrophic anal papilla. No significant hemorrhoidal disease. The scope was then withdrawn. Patient tolerated procedure well, was sent to recovery room in good condition. She should not require further colonoscopies for screening. CC: Romario Lobo D.O. [facility] 02-28-2022 Note Chief Complaint consultation for positive Cologuard HPI Staff 82 year old female presents on consultation from Dr. Lobo for positive Cologuard. Reports several month history of daily morning pelvic pain for which she takes Tylenol and pain resolves. Denies rectal pain or bleeding. Denies change in bowel habits, she has chronic constipation for which she takes Miralax. Denies nausea or vomiting. No unexplained weight loss. Last colonoscopy completed 03/2018 with incomplete prep. No known family history of colon cancer. History of Present Illness 82 yo female with h/o COPD/asthma, htn, hyperlipidemia, GERD, h/o breast and endometrial cancers, referred for positive Cologuard, denies change in bms or blood in stools, no abdominal complaints; abdominal operations significant for NICOLA with bso, last colonoscopy 03/2018, with diverticulosis, incomplete prep; no asa or NSAID use; no SBE prophylaxis, no fmhx of GI malignancy or IBD. no tobacco use. Review of Systems PHQ Score Initial Depression Screen Score: 0 HEENT: normal conjunctiva, sclera clear, no scleral icterus, EOM intact, PERRLA, oral mucosa moist without lesions. Neck: trachea midline, no mass, symmetric, no thyromegaly or nodules, no adenopathy Respiratory: lungs CTA, respirations non labored. Cardiovascular: regular rate and rhythm, no murmur, no pedal edema or varicosities. Gastrointestinal: soft, non distended, no tenderness, no masses, no palpable hernias, diastasis recti no, no hepatosplenomegaly; normal bs Lymphatic: no cervical adenopathy, no axillary adenopathy, no inguinal adenopathy. Musculoskeletal: normal gait, digits and nails without infection, nodes, cyanosis, clubbing. Skin: no rashes, no lesions, no ulcers, no subcutaneous nodules, induration. Psychiatric/Neuro: oriented to time, place, person, judgement normal, affect appropriate for age, insight intact, no focal deficits. Tests: labs reviewed, x-rays reviewed, review of old records completed, _ surgical options, risks, and possible complications with patient. Physical Exam Vitals & Measurements HR: 76(Peripheral) RR: 16 BP: 156/96 HT: 63 in HT: 160 cm WT: 82.7 kg WT: 181.94 lb BMI: 32.3 HEENT: normal conjunctiva, sclera clear, no scleral icterus, EOM intact, PERRLA, oral mucosa moist without lesions. Neck: trachea midline, no mass, symmetric, no thyromegaly or nodules, no adenopathy Respiratory: lungs CTA, respirations non labored. Cardiovascular: regular rate and rhythm, no murmur, no pedal edema or varicosities. Gastrointestinal: obese, soft, non distended, no tenderness, no masses, no palpable hernias, diastasis recti no, no hepatosplenomegaly; normal bs Lymphatic: no cervical adenopathy, Musculoskeletal: normal gait, digits and nails without infection, nodes, cyanosis, clubbing. Skin: no rashes, no lesions, no ulcers, no subcutaneous nodules, induration. Psychiatric/Neuro: oriented to time, place, person, judgement normal, affect appropriate for age, insight intact, no focal deficits. Tests: labs reviewed, review of old records completed, Discussed surgical options, risks, and possible complications with patient. Assessment/Plan 1. Positive colorectal cancer screening using Cologuard test (R19.5: Other fecal abnormalities) plan colonoscopy under anesthesia for further evaluation, informed consent obtained. Follow-up No qualifying data available Problem List/Past Medical History Ongoing Asthma BMI 32.0-32.9,adult Chronic constipation Chronic obstructive pulmonary disease Depression Diverticulosis GERD (gastroesophageal reflux disease) History of DVT (deep vein thrombosis) History of malignant neoplasm of breast History of uterine cancer HTN (hypertension) Hyperlipidemia Osteopenia Positive colorectal cancer screening using Cologuard test Historical No qualifying data Procedure/Surgical History Colonoscopy (04/11/2018), Colonoscopy (2011), Arthroplasty of right knee, History of arthroplasty of left knee, Lumpectomy of right breast, Repair of rectocele, Suspension of bladder, NICOLA - Total abdominal hysterectomy. Medications buPROPion 150 mg ER Tab, 150 mg= 1 tab(s), Oral, Daily famotidine 20 mg Tab, 20 mg= 1 tab(s), Oral, BID levothyroxine 50 mcg (0.05 mg) Tab, 50 mcg= 1 tab(s), Oral, Daily MiraLax, 17 gm, Oral, Daily Myrbetriq 50 mg oral tablet, extended release, 50 mg= 1 tab(s), Oral, Daily oxybutynin 15 mg ER Tab, 15 mg= 1 tab(s), Oral, Daily triamcinolone Top 0.5% Crm, 1 martine, Topical, BID Allergies oxaprozin (Unknown) sulfamethoxazole-trimethoprim (Urticaria, Eruption) Social History Alcohol - Denies Alcohol Use, 02/28/2022 Substance Abuse - Denies Substance Abuse, 02/28/2022 Tobacco - Denies Tobacco Use, 02/28/2022 Never (less than 100 in lifetime) Tobacco Use:. Never Smokeless Tobacco Use:., 02/28/2022 Family History COPD: Sister. Cardiac arrest: Father. Liver cancer: Mother. Pancreatic adenocarcinoma: Mother. [facility] Comment on above: Result Comment: Elec tronically Signed By: WILL MOURA, Inge Do\Date and Time Signed: 02/28/22 16:59 EDT 02-07-2022 History of Presen t illness Narrative Images from the original note were not included. Radiation Oncology - Follow Up Note PATIENT NAME: Ramez Herman PATIENT Treatment Technique: conformal Imaging: portal imaging Date Start: 03/29/2014 Date Complete: 05/11/2014 Treatment Area Number [employer] Number of Fractions (Elapsed Days) Dose Right Breast 5 6/18 MV 25(36) 5000cGy Right Breast Boost 1 16 MEV 5(6) 1000cGy Total 30(43) 6000cGy DIAGNOSIS: 1. Breast cancer, right, [id number] status post right breast radiation completed in 2014. 2. Right cerebellar convexity meningioma. 3. Endometrial cancer with prior hysterectomy and INTERVAL HISTORY: Ramez Herman presents for follow no new problems or concerns. Staying active. Denies headache or vision change. Denies change in the breast area. No upper extremity lymphedema. Denies cough chest pain or shortness of breath. . Mammography: 01/30/22: bilateral mammography. No suspicious findings or changes. Interval 12 month mammogram recommended. MRI Brain 02/01/20: Stable 1.6x1.2 cm right post. fossa meningioma. No other significant findings. ALLERGIES: ALLERGIES Allergen Reactions Bactrim [Sulfametho* Rash, Hives red spots Daypro [Oxaprozin] Other: See Comments Other reaction(s): SEVERE HEAD PAIN Other reaction(s): BAD PAIN IN HEAD MEDICATIONS: famotidine (PEPCID) 20 mg tablet Take 20 mg by mouth twice daily. levothyroxine 50 mcg cap Take 50 mcg by mouth daily before breakfast. oxybutynin ER (DITROPAN XL) 15 mg 24 hr Extended Rel Tab 15 mg. mirabegron (MYRBETRIQ) 25 mg Tb24 Take 25 mg by mouth once daily. metFORMIN (GLUCOPHAGE) 500 mg tablet Take 500 mg by mouth once daily. PHYSICAL EXAM: VS: BP 156/73 Pulse 83 Temp (!) 35.9 C (96.7 F) Resp 18 Wt 83 kg (183 lb) SpO2 95% BMI 33.46 kg/m KPS: 100 PHYSICAL EXAM: General Appearance: Well appearing, alert, in no acute distress, well-hydrated, well nourished.. Skin: Skin color, texture, turgor normal, no suspicious rashes or lesions. Lungs: Lungs clear to auscultation. No wheezing, rhonchi, rales.. Abdomen: Normal abdominal exam, Abdomen soft, non-tender. Bowel sounds normal. No masses, organomegaly. Neurologic: Nonfocal alert and oriented 3 cranial nerves II through XII intact. Sensation normal reflexes 1-2+ and symmetric Breast: bilateral breasts are symmetric, minimal posttreatment changes on the right. No suspicious or dominant nodularity. ASSESSMENT/PLAN: 1. Breast cancer, right, [id number] Clinically doing well. No late radiation problems or evidence of recurrence. Plan return in one year with mammography 2. Right cerebellar convexity meningioma, MRI documents continued stability. Patient is due for every other year MRI brain. This has been ordered. 3. Endometrial cancer. No evidence of clinical recurrence. Signed by: Yassine Ansari MD Cc:Dr. Lobo Portions of the above note extracted and edited from previous visit as well as active information included in the EMR. documented in this encounter [facility] Evaluation + Plan note No data available for this section General Surgery [facility] Evaluation note Diagnosis Malignant neoplasm of breast in female, estrogen receptor positive, unspecified laterality, unspecified site of breast (HCC)- Primary Benign neoplasm of meninges (HCC) Benign neoplasm of cerebral meninges [facility] Diagnosis Malignant neoplasm of breast in female, estrogen receptor positive, unspecified laterality, unspecified site of breast (HCC)- Primary Benign neoplasm of meninges (HCC) Benign neoplasm of cerebral meninges documented in this encounter [facility] note* Diagnosis Malignant neoplasm of breast in female, estrogen receptor positive, unspecified laterality, unspecified site of breast (HCC)- Primary History of breast cancer Personal history of malignant neoplasm of breast History of right breast cancer documented in this encounter [facility] note* Diagnosis Malignant neoplasm of breast in female, estrogen receptor positive, unspecified laterality, unspecified site of breast (HCC)- Primary Benign neoplasm of meninges (HCC) Benign neoplasm of cerebral meninges [facility] Diagnosis Benign neoplasm of cerebral meninges (HCC)- Primary Benign neoplasm of cerebral meninges documented in this encounter [facility] note* Diagnosis History of breast cancer- Primary Personal history of malignant neoplasm of breast documented in this encounter [facility] Discharge instructions No data available for this section General Surgery [place] note No data available for this section General Surgery [place] Reason for referral (narrative)* Diagnostic Procedure Only (Routine) - Pending Review Specialty Diagnoses / Procedures Referred By Breonna ochoa Referred To Contact [facility] Diagnoses Malignant neoplasm of breast in female, estrogen receptor positive, unspecified laterality, unspecified site of breast (HCC) History of breast cancer History of right breast cancer Procedures [facility] DIAGNOSTIC BILATERAL DIAGNOSTIC MAMMOGRAPHY COMPUTER-AIDED DETCJ Yassine Crabtree MD [address] [place] [address] [facility] [address] [place] [id number] Referral ID Status Reason Start Date Expiration Date Visits Requested Visits Authorized [id number] Pending Review Auto-Generat ed Referral 01/07/2023 02/06/2024 1 1 [facility] for referral (narrative)* Diagnostic Procedure Only (Routine) - New Request Specialty Diagnoses / Procedures Referred By Breonna ochoa Referred To Contact [facility] Diagnoses History of breast cancer Procedures KATHERINE DIAGNOSTIC BILATERAL DIAGNOSTIC MAMMOGRAPHY COMPUTER-AIDED DETCJ Yassine Crabtree MD [facility] [address] [facility] [address] [address] Referral ID Status Reason Start Date Expiration Date Visits Requested Visits Authorized [id number] New Request Auto-Generat ed Referral 03/13/2025 1 1 [facility] Advance Directives No Advanced Directives Records FoundDocuments on File Type Date Recorded Patient Grain Inspector Expl anation Advance Directive(s) 03/05/2014 2:12 PM Documents on File Type Date Recorded Patient Grain Inspector Expl anation Advance Directive(s) 03/05/2014 2:12 PM Reason for Referral Specialty Diagnoses / Procedures Referred By Contac t Referred To Contact [facility] Diagnoses Benign neoplasm of meninges (HCC) Procedures MRI BRAIN WO/W IVCON MRI BRAIN BRAIN STEM W/O W/CONTRAST MATERIAL Yassine Ansari MD [address] [place] [address] [place] [id number] [facility] Referral ID Status Reason Start Date Expiration Date Visits Requested Visits Authorized [id number] Pending Review Auto-Generat ed Referral 2 03/09/2023 1 1 Specialty Diagnoses / Procedures Referred By Contac t Referred To Contact [facility] Diagnoses Malignant neoplasm of breast in female, estrogen receptor positive, unspecified laterality, unspecified site of breast (HCC) Procedures KATHERINE DIAGNOSTIC BILAT DIAGNOSTIC MAMMOGRAPHY COMPUTER-AIDED DETCJ BI Yassine Ansari MD [address] [place] [address] [facility] [address] [place] [address] Referral ID Status Reason Start Date Expiration Date Visits Requested Visits Authorized [id number] Pending Review Auto-Generat ed Referral 3 03/09/2023 1 1 Specialty Diagnoses / Procedures Referred By Contac t Referred To Contact [facility] Diagnoses Benign neoplasm of meninges (HCC) Procedures MRI BRAIN WO/W IVCON MRI BRAIN BRAIN STEM W/O W/CONTRAST MATERIAL Yassine Ansari MD [address] [place] [address] [place] [address] [place] [id number] Referral ID Status Reason Start Date Expiration Date Visits Requested Visits Authorized [id number] Pending Review Auto-Generat ed Referral 4 03/07/2024 1 1 Specialty Diagnoses / Procedures Referred By Contac t Referred To Contact [facility] Diagnoses Malignant neoplasm of breast in female, estrogen receptor positive, unspecified laterality, unspecified site of breast (HCC) Procedures KATHERINE DIAGNOSTIC BILATERAL DIAGNOSTIC MAMMOGRAPHY COMPUTER-AIDED DETCJ Yassine Crabtree MD [address] [place] [address] [place] [address] [facility] [address] [place] [address] Referral ID Status Reason Start Date Expiration Date Visits Requested Visits Authorized [id number] Pending Review Auto-Generat ed Referral 02/01/2024 03/07/2024 1 1 Summary Purpose Family History No Family History Records FoundNo Family History Records FoundNo Family History Records Found Additional Source Comments Source Comments (unrecognize d section and content) In the event this informatio n is protected by the Federal Confidentiality of Alcohol and Drug Abuse Patient Records regulations: The Federal rules restrict any use of the information to criminally investigate or prosecute any alcohol or drug abuse patient.[facility] the event this information is protected by the Federal Confidentiality of Alcohol and Drug Abuse Patient Records regulations: The Federal rules restrict any use of the information to criminally investigate or prosecute any alcohol or drug abuse patient.[facility] the event this information is protected by the Federal Confidentiality of Alcohol and Drug Abuse Patient Records regulations: The Federal rules restrict any use of the information to criminally investigate or prosecute any alcohol or drug abuse patient.[facility] the event this information is protected by the Federal Confidentiality of Alcohol and Drug Abuse Patient Records regulations: The Federal rules restrict any use of the information to criminally investigate or prosecute any alcohol or drug abuse patient.[facility] the event this information is protected by the Federal Confidentiality of Alcohol and Drug Abuse Patient Records regulations: The Federal rules restrict any use of the information to criminally investigate or prosecute any alcohol or drug abuse patient.[facility] the event this information is protected by the Federal Confidentiality of Alcohol and Drug Abuse Patient Records regulations: The Federal rules restrict any use of the information to criminally investigate or prosecute any alcohol or drug abuse patient.[facility] the event this information is protected by the Federal Confidentiality of Alcohol and Drug Abuse Patient Records regulations: The Federal rules restrict any use of the information to criminally investigate or prosecute any alcohol or drug abuse patient.[facility] Teams (unrecognized sec tion and content) Supervisor [employer] Relationship Specialty Start Date End Date Romario Lobo Jr. [address] [place] [address] PCP - General Internal Medicine 02/02/14 Supervisor [employer] Relationship Specialty Start Date End Date Romario Lobo Jr. [address] [place] [address] PCP - General Internal Medicine 02/02/14 Supervisor [employer] Relationship Specialty Start Date End Date Romario Lobo Jr. [address] [facility] [address] [place] [address] PCP - General Internal Medicine 02/02/14 Supervisor [employer] Relationship Specialty Start Date End Date Romario Lobo Jr. [address] [place] [address] PCP - General Internal Medicine 02/02/14 [employer] [place] [employer] Relationship Specialty Start Date End Date Romario Lobo Jr. [address] [place] [address] PCP - General Internal Medicine 02/02/14 [employer] [place] Relationship Specialty Start Date End Date Romario Lobo Jr., DO [address] [place] [address] PCP - General Internal Medicine 02/02/14 [employer] [place] [employer] Relationship Specialty Start Date End Date Romario Lobo Jr., DO [address] [place] [address] PCP - General Internal Medicine 02/02/14 Reason for Visit (unrecogniz ed section and content) Reason Comments Breast Cancer Reason Comments Orders Reason Comments Orders Reason Comments Breast Cancer INFORMATION SOURCE (unrecogn ized section and content) DATE CREATED AUTHOR 04/07/2022 Anselmo Barfield [facility] DATE CREATED AUTHOR AUTHOR'S ORGANIZ ATION 04/08/2022 [facility] DATE CREATED AUTHOR AUTHOR'S ORGANIZ ATION 02/14/2024 [facility] FOR RECORDS PERTAINING TO PATIENTS WHO ARE OR HAVE BEEN ENROLLED IN A CHEMICAL DEPENDENCY/SUBSTANCEABUSE PROGRAM, SOME INFORMATION MAY BE OMITTED. This clinical summary was aggregated from multiple sources. Caution should be exercised in using it in the provision of clinical care. This summary normalizes information from multiple sources, and as a consequence, information in this document may materially change the coding, format and clinical context of patient data. In addition, data may be omitted in some cases. CLINICAL DECISIONS SHOULD BE BASED ON THE PRIMARY CLINICAL RECORDS. [facility]. provides no warranty or guarantee of the accuracy or completeness of information in this document.
== END 2025-01-12 11:24 | disposition home or self-care (01) ==
LOC: MAMMO 11:23
PROVIDERS: PCP Internal Medicine; Visit Provider Radiology Radiation Oncology
DX: Z12.31 Encounter for screening mammogram for malignant neoplasm of breast (principal); Z80.51 Family history of malignant neoplasm of kidney; Z80.42 Family history of malignant neoplasm of prostate; Z80.8 Family history of malignant neoplasm of other organs or systems
CPT/HCPCS: 77063; 77067